=== PATIENT | male | born 1945 | race Caucasian/White ===

== ENCOUNTER → 2016-06-02 09:58 | Outpatient (CLI) | payer MEDICARE, BC, OTHER ==
[2013-11-27 08:06] VITALS: BMI 26.2
[~2016-06-02 09:58] MED LIST: ASPIRIN 81 MG E81 MG PO; DIOVAN80 MG PO; FLEXERIL10 MG PO; HEMOCYTE PLUS1 CAP; HEMOCYTE PLUS1 CAP PO; LIPITOR80 MG PO; LISINOPRIL5 MG PO; LOPRESSOR25 MG PO; MOBIC7.5 MG PO; NORCO 5/325 TAB1 TA1 PO; PRAVACHOL10 MG PO; TYLENOL 325 MG325 MG PO; ZYRTEC10 MG PO
[2016-06-02 10:45] LABS: HEMOGLOBIN A1C 5.5 % (4.8-6.0)
[2016-06-02 10:57] LABS: T4 THYROXINE 9.1 ug/dL (4.7-13.3); THYROID STIMULATING HORMONE 0.94 uIU/mL (0.36-3.74)
[2016-06-02 12:17] LABS: ERYTHROCYTE SEDIMENTATION RATE 9 mm/hr (0-20)
[2016-06-03 11:18] LABS: ANA REFLEX - DIRECT Negative (Negative)
== END | disposition home or self-care (01) ==
LOC: D.LAB 09:58
PROVIDERS: Psychiatry & Neurology Neurology
DX: G60.3 Idiopathic progressive neuropathy (principal); G31.84 Mild cognitive impairment of uncertain or unknown etiology

== ENCOUNTER → 2016-12-29 09:50 | Outpatient (CLI) | payer OTHER ==
[2013-11-27 08:06] VITALS: BMI 26.2
--- NOTE | 2016-12-31 12:22 | EC ---
PATIENT:KARINA HODGES DATE OF SERVICE: 12/29/16 SEX: M MEDICAL RECORD: [id number] DATE OF : 43 LOCATION:[facility] AGE OF PATIENT: 71 ADMISSION DATE: 12/29/16 REFERRING PHYSICIAN: INTERPRETING PHYSICIAN: JOE DIAMOND MD ECHOCARDIOGRAM REPORT ECHO CHARGES 4 ECHO COMPLETE CLINICAL DIAGNOSIS: ISCHEMIC HEART DISEASE HX CAD ECHOCARDIOGRAPHIC MEASUREMENTS (adult normal given) AC root (d.<3.7cm) 3.9 cm LV Septum d (<1.2 cm> 0.90 cm Valve Excursion 1.5 cm LV Septum (systole) 1.4 cm Left Atria (s.<4.0cm> 3.6 cm LVPW d(<1.2cm) 1.0 cm RV (d.<2.3cm) 2.9 cm LVPW (sytole) 1.4 cm LV diastole(<5.6CM) 5.4 cm MV E-F(>70mm/sec) cm LV systole 3.6 cm LVOT Diameter 1.6 cm MV exc.(>10mm) 1.4 cm Est.ejection fraction (50-75%) % Pericardial Effusion N DOPPLER: LVIT cm/sec A 101 cm/sec E 73.0 cm/sec LA cm/sec RVSP 36 mmHg LVOT 89 cm/sec AOP1/2T m/s Asc. Ao 158 cm/sec RVOT 71 cm/sec RA cm/sec PA 111 cm/sec AV Gradient Peak 9.95 mmHg AV Mean 4.83 mmHg AV Area 1.1 cm MV Gradient Peak 3.23 mmHg MV Mean 1.46 mmHg MV Area cm COMMENTS: Pill Coater: Jimbo AUSTIN Chief Dispatcher: 1 Dr. Diamond TAPE# PACS DATE OF SERVICE: 12/29/2016 Echocardiogram FINDINGS: 1. Left ventricular chamber size is within normal limits. Left ventricular systolic function is normal. Overall ejection fraction estimated at 55%. 2. Left atrium, right atrium, and right ventricular chamber sizes are within normal limits. 3. Valvular structures: Mitral valve demonstrates posterior leaflet prolapse. ECHOCARDIOGRAM REPORT [id number] KARINA HODGES The remaining valvular structures have normal structure and motion. 4. Doppler interrogation reveals moderate mitral regurgitation, mild tricuspid regurgitation, no other valvular insufficiency or stenosis. Pulmonary systolic pressure is still preserved at 36 mmHg. 5. No evidence of pericardial effusion or left ventricular thrombus. TRANSINT:[id number] Voice Confirmation ID: [id number] DOCUMENT ID: [id number] JOE DIAMOND MD at 1222 CC: [id number] DICTATION DATE: 12/29/16 1537 BUILDING SUPPLIES SALESPERSON RETAIL: 12/29/162035 DEP CLI 12/29/16 [place] [id number]
== END | disposition home or self-care (01) ==
LOC: D.ECHO 09:50
DX: I25.9 Chronic ischemic heart disease, unspecified (principal)

== ENCOUNTER 2019-06-11 11:39 | Inpatient (IN) | payer MEDICARE, BC ==
[~2019-06-11] VITALS: Ht 172.7 cm; Wt 61.7 kg
--- NOTE | ~2019-06-11 | HEMODYNAMI ---
PATIENT:KARINA HODGES MEDICAL RECORD: [id number] : 43 LOCATION:[facility] [address] [id number] ADMISSION DATE: 06/12/19 Generatedon:06/16/201914:25 Patient name: KARINA HODGES Patient #: [id number] SSN: [id number] : 1945 Date of study: 06/16/2019 Page: Of Hemodynamic Procedure Report Patient Data Patient Demographics First Name: KARINA Gender: Male Last Name: TRACIE : 1945 [facility] Initial: [place] Age: 74 year(s) Patient #: [id number] Race: Unknown SSN: [id number] Additional ID: [id number] Contact details [address]: [address] [place] [address] State: [place] City: [place] Zip code: [address] Past Medical History Allergies Allergen Reaction Date Comments Reported Other allergy 06/16/2019 amoxicillin Admission Admission Data Admission Date: 06/12/2019 Admission Time: 12:43 Arrival Date: 06/16/2019 Arrival Time: 0:00 Admit Source: Other Insurance Payor: Medicare, Room #: D.2316 Private health insurance [facility] #: [id number] Height (in.): 69 BSA: 1.81 (m2) Height (cm.): 175.26 BMI: 21.56 (kg/m2) Weight (lbs.): 146 Weight (kg.): 66.22 Lab Results Lab Result Date: 06/16/2019 Lab Result Time: 0:00 Biochemistry Name Units Result Min Max BUN mg/dl 35 --(----)-* 7 18 Creatinine mg/dl 1.2 --(---*)-- 0.6 1.3 eGFR ml/min 57 *-(----)-- 90 120 NONAFRICAN CBC Name Units Result Min Max Hemoglobin g/dl 13.5 --(*---)-- 13.5 17.5 Procedure Procedure Types Cath Procedure Diagnostic Procedure [facility] w/Coronaries w/Grafts Procedure Description Procedure Date Procedure Date: 06/16/2019 Procedure Start Time: 14:06 Procedure End Time: 14:23 Procedure Staff Name Function Baudilio Call MD Performing Physician Temitope Stein RN Principal Biostatistician Radha Jean-Baptiste RT Monitor Temitope Stein RN Nurse Dyan Thomas RT Scrub Procedure Data Cath Procedure Fluoroscopy Diagnostic fluoroscopy Total fluoroscopy Time: 4.1 time: 4.1 min min Diagnostic fluoroscopy Total fluoroscopy dose: 314 dose: 314 mGy mGy Entry Location Entry Primary Successful Side Size Upsize Upsize Entry Closure Succes sful Closure Location (Fr) 1 (Fr) 2 (Fr) Remarks Device Remarks Femoral Right 5 Fr Exoseal artery Estimated blood loss: 10 ml Diagnostic catheters Device Type Used For End Catheter Placement MULTIPACK JL 4.0 5Fr Procedure catheter DIAGNOSTIC AR MOD 5Fr Right Coronary Catheter ([id number]) Angiography DIAGNOSTIC IMT 5Fr Procedure Catheter ([id number]) MULTIPACK Pigtail 5 Fr Procedure catheter Procedure Complications No complications Procedure Medications Medication Administration Route Dosage Oxygen etCO2 Nasal cannula 2 l/min Heparin Flush Bag added to field 2 bags (1000units/500ml NS) Lidocaine 2% added to field 20 0.9% NaCl I.V. 100 ml/hr Fentanyl I.V. 25 mcg Versed I.V. 0.5 mg Fentanyl I.V. 50 mcg Versed I.V. 1 mg Fentanyl I.V. 25 mcg Versed I.V. 0.5 mg Versed I.V. 0.5 mg Hemodynamics Rest BSA: 1.81 (m2) O2 Consumption: Estimated: 219.95 (ml/min) O2 Consumption indexed : Estimated:121.52 (ml/min/m) Heart Rate: 87 (bpm) Pressure Samples Time Site Value (mmHg) Purpose Heart Use Rate(bpm) 14:17 LV 109/-4,8 Snapshot 87 14:18 AO 104/60(78) Pullback 83 14:18 LV 105/-1,9 Pullback 83 Gradients Valve Time Site 1 Site 2 Mean SEP/DFP Peak To Heart Use (mmHg) (sec/min) Peak Rate (mmHg) (bpm) Aortic 14:18 LV AO 6 18 1 83 105/-1,9 104/60(78) Calculations Valve P-P Mean Valve Index Valve Source Name Gradient Area Flow (cm2) Aortic 1 6 1 6 Snapshots Pre Cath Intra NCS Post Cath Medications Time Medication Route Dose Verified Delivered Reason Notes Eff ectiveness by by 13:56:33 Oxygen etCO2 2 Temitope Temitope for low 02 Nasal l/min Emil Stein sats cannula RN RN 13:56:41 Heparin Flush added 2 Temitope Temitope used for Bag to bags Emil Stein, procedure (1000units/500ml field RN RN NS) 13:56:51 Lidocaine 2% added 20ml Temitope Baudilio for local to vial Jakub Stein MD anesthetic field RN 13:57:06 0.9% NaCl I.V. 100 Temitope Temitope Per ml/hr Emil Stein, physician RN RN 14:01:49 Fentanyl I.V. 25 Temitope Temitope for mcg Stien, Stein, sedation RN RN 14:01:57 Versed I.V. 0.5 Temitope Temitope for mg Stein, Stein, sedation RN RN 14:07:06 Fentanyl I.V. 50 Temitope Temitope for mcg Stein, Stein, sedation RN RN 14:07:10 Versed I.V. 1 mg Temitope Temitope for Stein, Stein, sedation RN RN 14:09:35 Fentanyl I.V. 25 Temitope Temitope for mcg Stein, Stein, sedation RN RN 14:09:40 Versed I.V. 0.5 Temitope Temitope for mg Stein, Stein, sedation RN RN 14:14:16 Versed I.V. 0.5 Temitope Temitope for mg Stein, Stein, sedation RN manager family Log Time Note 13:40:00 Admit Source: Other 13:40:02 Arrival Date: 06/16/2019 12:00:00 AM 13:40:25 Insurance Payor : Private health insurance, Medicare 13:40:45 Patient Height : 69 inches 13:40:56 Patient Weight : 146 lbs 13:42:06 Lab Result : eGFR NONAFRICAN 57 ml/min 13:42:06 Lab Result : Creatinine 1.2 mg/dl 13:42:06 Lab Result : BUN 35 mg/dl 13:42:06 Lab Result : Hemoglobin 13.5 g/dl 13:43:05 Procedure Status Urgent Heart Cath (IP). 13:43:10 Temitope Stein RN sent for patient. Start room use. 13:43:20 Time tracking: Regular hours (M-F 7:00 - 5:00) 13:43:26 Plan of Care:Hemodynamics will remain stable., Cardiac rhythm will remain stable., Comfort level will be maintained., Respiratory function will remain adequate., Patient/ family verbilizes understanding of procedure., Procedure tolerated without complication., Recovers from procedure without complications.. 13:43:33 Patient received from ICU to CCL 1 Alert and oriented. Tansferred to table in Supine position. 13:43:35 Warm blankets applied, and shirley hugger turned on for patient comfort. 13:43:36 Warm blankets applied, and shirley hugger turned on for patient comfort. 13:43:47 H&P Date Dictated: 06/12/2019 Within 30 days and on chart., H&P Addendum completed by physician on day of procedure. (MUST COMPLETE FOR ALL OUTPATIENTS). 13:43:49 Pre-procedure instructions explained to patient. 13:43:51 Family in waiting room. 13:43:54 Patient NPO since Midnight. 13:44:13 Patient allergic to Other allergyamoxicillin 13:44:16 Is the patient allergic to Iodine/contrast media? No. 13:44:17 Was the patient premedicated? Yes 13:44:29 2) 60-89 Mildly reduced kidney function, and other findings (as for stage 1) point to kidney disease. 13:44:52 Maximum allowable contrast dose (3.7 X eGFR X 0.75)174 ml. 13:56:33 Oxygen 2 l/min etCO2 Nasal cannula was administered by Temitope Stein RN; for low 02 sats; Verbal order read back and verified. 13:56:41 Heparin Flush Bag (1000units/500ml NS) 2 bags added to field was administered by Temitope Stein RN; used for procedure; Verbal order read back and verified. 13:56:51 Lidocaine 2% 20ml vial added to field was administered by Baudilio Call MD; for local anesthetic; Verbal order read back and verified. 13:56:59 Is patient on blood thinner?No 13:57:02 Patient diabetic? No. 13:57:06 0.9% NaCl 100 ml/hr I.V. was administered by Temitope Stein RN; Per physician; Verbal order read back and verified. 13:57:06 Snore? Yes 13:57:10 Sleep apnea? No 13:57:22 Patient pain scale 0/10 ?. 13:57:36 IV patent on arrival in right forearm with 0.9% NaCl at [facility]. 13:57:42 Lab results completed and on chart. 13:57:47 Stress Test: no; N/A ? 13:57:50 Risk of Mortality: .2 13:57:54 Risk of blood transfusion: .4 13:57:58 Risk of CHAITANYA: 4.4 13:58:17 Right groin area was prepped with chlora-prep and draped in sterile fashion 13:58:37 Alarms reviewed by R. N. 13:58:38 Sharps counted by scrub and verified by R.N. 13:58:39 Physician paged 14:01:33 Physician arrived 14:01:34 --------ALL STOP TIME OUT------ 14:01:35 Final Timeout: patient, procedure, and site verified with staff and physician. All members of the team are in agreement. 14:01:39 Left groin site verified by team. 14:01:43 Fire Safety Assessment: A--An alcohol-based skin anteseptic being used preoperatively., C--Open oxygen or nitrous oxide is being used., D--An ESU, laser, or fiber-optic light is being used. 14:01:47 Physical assessment completed. ASA score P 3 - A patient with severe systemic disease as per Baudilio Call MD. 14:01:49 Fentanyl 25 mcg I.V. was administered by Temitope Stein RN; for sedation; Verbal order read back and verified. 14:01:52 Sedation plan: IV Moderate Sedation Medication:Versed, Fentanyl 14::57 Versed 0.5 mg I.V. was administered by Temitope Stein RN; for sedation; Verbal order read back and verified. 14:05:26 Procedure started. 14:05:26 Full Disclosure recording started 14:05:35 Use device set Femoral Dx 14:05:37 ACIST Syringe (47071) opened to sterile field. 14:05:37 Bag Decanter (2002S) opened to sterile field. 14:05:37 Medline Cath Pack ([id number]) opened to sterile field. 14:05:39 ACIST Hand Control (64193) opened to sterile field. 14:05:39 ACIST Manifold (79126) opened to sterile field. 14:05:39 DIAGNOSTIC Multipack 5Fr catheter set (MR5131) opened to sterile field. 14:05:40 Tegaderm 4 x 4 (1626W) opened to sterile field. 14:05:42 SHEATH 5FR Stanton ([id number]) opened to sterile field. 14:05:43 EMERALD Guide Wire (589-907) opened to sterile field. 14:06:17 Local anesthetic to right femoral artery with Lidocaine 2% by Baudilio Call MD.INITIAL ACCESS ONLY 14:06:26 A 5 Fr sheath was inserted into the Right Femoral artery 14:06:58 A MULTIPACK JL 4.0 5Fr catheter was advanced over the wire and used for Procedure. 14:07:01 LCA angiography performed. 14:07:06 Fentanyl 50 mcg I.V. was administered by Temitpoe Stein RN; for sedation; Verbal order read back and verified. 14:07:10 Versed 1 mg I.V. was administered by Temitope Stein RN; for sedation; Verbal order read back and verified. 14:09:35 Fentanyl 25 mcg I.V. was administered by Temitope Stein RN; for sedation; Verbal order read back and verified. 14:09:40 Versed 0.5 mg I.V. was administered by Temitope Stein RN; for sedation; Verbal order read back and verified. 14:10:53 A DIAGNOSTIC AR MOD 5Fr Catheter ([id number]) was advanced over the wire and used for Right Coronary Angiography. 14:11:37 SVG angiography performed. 14:11:42 SVG to Circ angiography performed. 14:12:07 A DIAGNOSTIC IMT 5Fr Catheter ([id number]) was advanced over the wire and used for Procedure. 14:12:45 ANGULO to LAD angiography performed. 14:14:16 Versed 0.5 mg I.V. was administered by Temitope Stein RN; for sedation; Verbal order read back and verified. 14:15:26 Catheter removed. 14:15:36 A MULTIPACK Pigtail 5 Fr catheter was advanced over the wire and used for Procedure. 14:15:38 LV angiography performed. 14:15:41 LV gram done using FULTNO 14:17:32 EXOSEAL 5Fr (EX500) opened to sterile field. 14:17:56 EF : 50 % 14:18:12 Catheter removed. 14:18:22 Sheath removed intact; hemostasis achieved with Exoseal to the Right Femoral artery. 14:18:26 Procedure ended.(Physican Out) 14:18:50 Fluoroscopy time 04.10 minutes. 14:18:54 Fluoroscopy dose: 314 mGy 14:18:54 Flurop Dose total: 314 14:19:03 Dose Area Product 48030 mGy/cm. 14:19:21 Maximum allowable dose exceeded? No. 14:19:22 Sharps counted by scrub and verified by R.N. 14:19:28 Insertion/operative site no bleeding no hematoma. 14:19:33 Post-op/insertion site Right Femoral artery dressed using a 4 x 4 and Tegaderm. 14:19:35 Post Procedure Pulses reassessed and unchanged 14:19:44 Post procedure rhythm: unchanged. 14:19:48 Estimated blood loss: 10 ml 14:19:53 Post procedure instruction explained to patient.Patient verbalizes understanding. 14:19:55 Patient needs reinforcement of post procedure teaching. 14:20:23 Procedure type changed to Cath procedure, Diagnostic procedure, LHC, LHC w/Coronaries w/Grafts 14:20:26 Procedure and supply charges have been captured, reviewed, submitted and are correct. 14:20:44 Procedure and supply charges have been captured, reviewed, submitted and are correct. 14:22:09 Procedure and supply charges have been captured, reviewed, submitted and are correct. 14:22:41 Procedure Complication : No complications 14:22:50 LHC Findings: mild to moderate CAD (<70%) 14:22:53 See physician's report for complete and final results. 14:22:55 Report given to Pre/Post Procedure Room. 14:23:06 Patient transfered to ICU with Stretcher. 14:23:08 Procedure ended. 14:23:08 Full Disclosure recording stopped 14:23:11 End room use (Document Last) Device Usage Item Name Manufacture Quantity Catalog Number Hospital Part Current Minim al Lot# / Charge Number Stock Stock Serial# Code ACIST [facility] 1 62222 023096 399639 844636 20 Syringe Medical (78359) Systems Inc Bag Microtek 1 2001S 964738 24527 439659 5 Decanter Medical Inc. (2001S) Medline Medline 1 [id number] 782984 46245 322635 5 Cath Pack ([id number]) ACIST Hand Acist 1 67301 270430 968971 417665 5 Control Medical (76699) Systems Inc ACIST Acist 1 13762 332774 826804 967049 5 Manifold Medical (45439) Systems Inc DIAGNOSTIC Cardinal 1 [id number] 714386 78240 192582 30 Multipack EndoEvolution 5Fr catheter set (XQ1326) Tegaderm 4 3M 1 1626W 465865 154040 765408 5 x 4 (1626W) SHEATH 5FR Terumo 1 [id number] 194910 604218 536115 5 Stanton (YAF460) EMERALD Cardinal 1 502-455 696693 691213 104422 5 Guide Wire Health (502-455) MULTIPACK Cardinal 1 138006 5 JL 4.0 5Fr Health catheter DIAGNOSTIC Cardinal 1 [id number] 811442 191150 331950 15 AR MOD 5Fr Health Catheter (624665Z) DIAGNOSTIC [place] 1 [id number] 042819 499986 32481 5 IMT 5Fr Scientific Catheter ([id number]) MULTIPACK Cardinal 1 276847 5 Pigtail 5 Health Fr catheter EXOSEAL 5Fr Cardinal 1 EX500 146042 342996 517447 10 (EX500) Health Signature Audit [place] Stage Time Signature Unsigned Intra-Procedure 06/16/2019 Radha Jean-Baptiste 2:20:44 PM RT(R) Intra-Procedure 06/16/2019 Temitope Stein, 2:22:09 PM RN Intra-Procedure 06/16/2019 Baudilio Call MD 2:25:14 PM [place] [id number] [facility] [place] [address]
--- NOTE | 2019-06-11 12:30 | NUR ---
PATIENT STATES HE STARTED HAVING SLURRED SPEECH LAST NIGHT APPROX 2330, THIS MORNING HIS FOUND HIM ON THE BATHROOM FLOOR. PATIENT STATES HE HAS NECK AND BACK PAIN THAT IS CHRONIC, DENIES ANY NEW PAIN. IS ABLE TO ANSWER ALL QUESTION APPROPRIATELY, ALTHOUGH HIS SPEECH IS NOT CLEAR. RUBEN OVERHEAD LINE WORKER FIRM AND EQUAL SMILE IS SYMMETRICAL, VERY PLEASANT.
[2019-06-11 12:44] LABS: BASOPHILS 0.2 % (0-2); EOSINOPHILS 0 % (0-7); HEMATOCRIT 39.6 % (42.0-54.0); HEMOGLOBIN 13.4 g/dL (13.5-17.5); IMMATURE GRANULOCYTES 0.2 % (0-5); LYMPHOCYTES 4.5 % (15-50); MCH 33.1 pg (26.0-34.0); MCHC 33.8 g/dL (31.0-37.0); MCV 97.8 fL (80.0-100.0); MEAN PLATELET VOLUME 9.5 fL (7.4-10.4); MONOCYTES 7.3 % (2-11); NEUTROPHILS 87.8 % (40-80); RBC 4.05 10x6/uL (4.20-6.10); RDW 13.4 % (11.5-14.5); WBC 10.6 10x3/uL (4.8-10.8)
[2019-06-11 12:48] LABS: PLATELET COUNT 144 10x3/uL (130-400)
[2019-06-11 12:59] LABS: APTT 30.1 SECONDS (22.8-39.4); INR 1.12 (0.85-1.17); PROTIME 14.4 SECONDS (11.6-15.0)
[2019-06-11 13:03] LABS: ANION GAP 13.3 mmol/L (8-16); CALCIUM 9.6 mg/dL (8.5-10.1); CARBON DIOXIDE 23.8 mmol/L (21.0-32.0); CREATININE - SERUM 1.1 mg/dL (0.6-1.3); POTASSIUM - SERUM 4.1 mmol/L (3.5-5.1)
[2019-06-11 13:09] LABS: ALBUMIN 3.1 g/dL (3.4-5.0); BILIRUBIN - TOTAL 1.64 mg/dL (0.2-1.3); PROTEIN - SERUM 6.5 g/dL (6.4-8.2)
[2019-06-11 13:41] VITALS: BP 92/57
[2019-06-11 14:06] VITALS: BP 111/71
--- NOTE | 2019-06-11 14:12 | NUR ---
TECH TO BEDSIDE TO DO CAROID DOPPLER, FAMILY AT BEDSIDE.
--- NOTE | 2019-06-11 14:20 | NUR ---
ATTEMPTED TO CALL REPORT, STATES THE NURSE IS BUSY AND SHE WILL CALL ME BACK.
--- NOTE | 2019-06-11 14:37 | NUR ---
PATIENT TO GO TO MRI VIA W/C PER TECH.
--- NOTE | 2019-06-11 15:05 | NUR ---
PATIENT TAKEN TO MRI VIA W/C, TECH WILL TAKE PATIENT TO HIS ROOM AFTER THE MRI.
--- NOTE | 2019-06-11 16:01 | NUR ---
PT RECIEVED FROM ER. NO SIGNS OF DISTRESS. IV TO LEFT HAND PATENT NO REDNESS OR TENDERNESS. ON 4L NC. DENIES ANY FURTHER NEED AT THIS TIME. CALL LIGHT IN REACH. BED LOW POSITION. NO FAMILY AT BEDSIDE
[2019-06-11 17:40] VITALS: BP 108/59
[2019-06-11 18:20] VITALS: BP 108/69; BMI 21.3
--- NOTE | 2019-06-11 18:28 | NUR ---
I have reviewed this patient and I concur with the Shift Assessment completed by the Licensed Practical Nurse today this shift.
[2019-06-11 20:00] VITALS: BP 117/69
[2019-06-12] VITALS (10 sets, daily range): BP systolic 83–128; BP diastolic 62–100; BMI 21.2
--- NOTE | 2019-06-12 01:40 | NUR ---
PT WILL NOT KEEP FIELD MARKETING LEAD ON. RETURNED TO ACID MAKER AND COMPLETED ORDER.
--- NOTE | 2019-06-12 02:13 | NUR ---
CALLED SHIP UNLOADER TO ADVISE THAT PT HAD A FALL...FOUND ON KNEES...NO INJURIES. CALLED ROSANA, PT'S AND TOLD HER THAT HE FELL...WILL NOT STAY IN BED...AND KEEPS TRYING TO ESCAPE FLOOR. SHE CANNOT COME HERE TO SIT WITH PT AND SAID " TIE HIM DOWN IF YOU HAVE TO".
--- NOTE | 2019-06-12 02:32 | NUR ---
GAVE ATIVAN 0.5 MG IVP PER PRN ORDER FOR AGGITATION. WILL MONITOR FOR EFFECTIVENESS.
[2019-06-12 04:39] LABS: BASOPHILS 0.4 % (0-2); EOSINOPHILS 0 % (0-7); HEMATOCRIT 38.8 % (42.0-54.0); HEMOGLOBIN 12.9 g/dL (13.5-17.5); IMMATURE GRANULOCYTES 0.2 % (0-5); LYMPHOCYTES 9.1 % (15-50); MCH 32.8 pg (26.0-34.0); MCHC 33.2 g/dL (31.0-37.0); MCV 98.7 fL (80.0-100.0); MEAN PLATELET VOLUME 10.1 fL (7.4-10.4); MONOCYTES 14.3 % (2-11); PLATELET COUNT 172 10x3/uL (130-400); RBC 3.93 10x6/uL (4.20-6.10); RDW 13.4 % (11.5-14.5)
[2019-06-12 04:43] LABS: WBC 5.6 10x3/uL (4.8-10.8)
[2019-06-12 05:13] LABS: ANION GAP 13.2 mmol/L (8-16); CALCIUM 9.7 mg/dL (8.5-10.1); CARBON DIOXIDE 26.4 mmol/L (21.0-32.0); CREATININE - SERUM 1.1 mg/dL (0.6-1.3); PHOSPHOROUS 3.2 mg/dL (2.5-4.9); POTASSIUM - SERUM 4.6 mmol/L (3.5-5.1)
--- NOTE | 2019-06-12 07:10 | NUR ---
PT RESTING IN BED. SWALLOW BREATHING. WITH INCREASE SECERTIONS. SUCTION SET UP PER RESP. IV TO LEFT FORARM PATENT NO REDNESS OR TENDERNESS. ON 2L NC. AWAITING TELEMETRY AT THIS TIME. MENTAL STATUS DECREASING. ALL FALL PRECAUTIONS IN PLACE. OBSERVATED TRYING TO GET OUT OF BED. REDIRECTED BACK TO BED. DENIES ANY FURTHER NEED AT THIS TIME. CALL LIGHT IN REACH. BED LOW POSITION. NO FAMILY AT BEDSIDE AT THIS TIME.
[2019-06-12 10:54] LABS: % SATURATION 10 % (15-55); IRON 21 ug/dl (35-150); TOTAL IRON BIND CAPACITY 201 ug/dl (260-445); UNSAT IRON BIND CAPACITY 180 ug/dl (150-375)
[2019-06-12 10:55] LABS: UDS - AMPHET NEGATIVE QUAL (NEGATIVE); UDS - BARB NEGATIVE QUAL (NEGATIVE); UDS - BENZO NEGATIVE QUAL (NEGATIVE); UDS - COCAINE NEGATIVE QUAL (NEGATIVE); UDS - OPIATE POSITIVE QUAL (NEGATIVE); UDS - PCP NEGATIVE QUAL (NEGATIVE); UDS - THC NEGATIVE QUAL (NEGATIVE)
[2019-06-12 10:58] LABS: BILIRUBIN NEGATIVE (NEGATIVE); GLUCOSE NEGATIVE (NEGATIVE); KETONE MODERATE mg/dL (NEGATIVE); NITRITE NEGATIVE (NEGATIVE); SPECIFIC GRAVITY 1.025 (1.005-1.020)
[2019-06-12 10:59] LABS: BACTERIA FEW /hpf (NEGATIVE); EPITHELIAL CELLS 0-5 /hpf (0-5); WHITE CELLS - URINE 0-5 /hpf (NEGATIVE)
[2019-06-12 11:37] LABS: CKMB 4.4 U/L (0.0-3.6); CREATINE KINASE 459 UL (21-232); FERRITIN 385 ng/mL (3-244); LDH 208 U/L (85-227); TROPONIN-I < 0.017 ng/mL (0.000-0.060)
--- NOTE | 2019-06-12 12:59 | NUR ---
CALLED INTO PATIENTS ROOM PER ORDAINED MINISTER. PATIENT IN RESPIRATORY DISTRESS. CALLED RESPIRATORY. CALLED JOSE RAMON HUSAIN INTO ROOM. PATIENT O2 SAT ON 78% RA. PUT PATIENT PUT ON 5.5L O2 SATURATION @ 90%. CURT CAME INTO PATIENT'S ROOM, SENDING PATIENT TO ICU PER DR. ELIAS.
--- NOTE | 2019-06-12 16:00 | NUR ---
RECIEVED PT FROM ELSI WALLACE. PT ON BIPAP AT 40 PERCENT. VSS. VOICES NO CO AT TIME. SR UP X 2. BED ALARM ON.
--- NOTE | 2019-06-12 16:20 | NUR ---
LOUIE IN CT NOTIFIED PT READY FOR CTA.
--- NOTE | 2019-06-12 17:45 | NUR ---
DR ELIAS NOTIFIED PT CAN NOT COME OFF BIPAP FOR CTA DUE TO ABGS. DO IN AM.
--- NOTE | 2019-06-12 19:20 | NUR ---
PT RESTING QUIETLY, BIPAP IN USE, AROUSES EASILY, CONFUSED, LUNGS VERY DIMINISHED, LEFT PIV INTACT AND SL, ROJO PATENT TO BSD, NO DISTRESS NOTED, VITALS STABLE
--- NOTE | 2019-06-12 21:30 | NUR ---
PT REMAINS CONFUSED, REORIENTED FREQUENTLY, WILL CONT TO MONITOR
--- NOTE | 2019-06-12 23:30 | NUR ---
PT AWAKE, REMAINS CONFUSED, ATTEMPTS TO GET UP AT TIMES, FOLLOWS COMMANDS, VITALS STABLE
[2019-06-13] VITALS (23 sets, daily range): BP systolic 94–133; BP diastolic 42–97
--- NOTE | 2019-06-13 01:30 | NUR ---
PT REMAINS CONFUSED, PULLS AT BIPAP MASK AT TIMES, INSTRUCTED PT TO LEAVE MASK IN PLACE
[2019-06-13 04:46] LABS: CALC OSMOLALITY 296 mosm/kg (275-300); CALCIUM 10.2 mg/dL (8.5-10.1); CARBON DIOXIDE 28.8 mmol/L (21.0-32.0); CHLORIDE - SERUM 106 mmol/L (98-107); GLUCOSE 152 mg/dL (74-106); PHOSPHOROUS 2.5 mg/dL (2.5-4.9); POTASSIUM - SERUM 4.7 mmol/L (3.5-5.1); SODIUM 142 mmol/L (136-145); eGFR NON AFRICAN AMERICAN 77 mL/min (90-120)
[2019-06-13 04:49] LABS: UREA NITROGEN 43 mg/dL (7-18)
[2019-06-13 04:58] LABS: MAGNESIUM - SERUM 2.3 mg/dL (1.8-2.4)
[2019-06-13 05:03] LABS: BASOPHILS 0 % (0-2); EOSINOPHILS 0 % (0-7); HEMATOCRIT 37.9 % (42.0-54.0); HEMOGLOBIN 12.5 g/dL (13.5-17.5); IMMATURE GRANULOCYTES 0.3 % (0-5); LYMPHOCYTES 12.8 % (15-50); MEAN PLATELET VOLUME 10.6 fL (7.4-10.4); NEUTROPHILS 77.9 % (40-80); PLATELET COUNT 175 10x3/uL (130-400); RBC 3.79 10x6/uL (4.20-6.10); RDW 13.5 % (11.5-14.5)
[2019-06-13 05:04] LABS: WBC 2.9 10x3/uL (4.8-10.8)
--- NOTE | 2019-06-13 05:46 | NUR ---
PT AWAKE, TRYING TO LEAVE, STATES HE HAS TO GO HOME TO TAKE CARE OF HIS FAMILY, PT APPEARS ORIENTED, KNOWS DATE AND WHERE HE IS, CONVINCED PT TO STAY UNTIL HE SPEAKS WITH THE DR AND TESTS ARE COMPLETED, PT IN AGREEMENT
--- NOTE | 2019-06-13 07:17 | NUR ---
PATIENT RESTING QUIETLY WITH EYES CLOSED. BIPAP IS ON. BED IS IN LOW POSITION AND CALL LIGHT IS IN REACH. PATIENT DENIES PAIN AT THIS TIME. IV TO THE LEFT FOREARM IS SALINE LOCKED. EDUCATED PATIENT ON THE CALL LIGHT. PATIENT DENIES NEEDS AT THIS TIME.
--- NOTE | 2019-06-13 08:41 | NUR ---
PLACED PATIENT BACK ON BIPAP AFTER BREAKFAST. TOLERATING WELL.
--- NOTE | 2019-06-13 08:53 | NUR ---
PATIENT DENIES ANY NEEDS AT THIS TIME. PATIENT PLACED BACK ON BIPAP BECAUSE HE REMOVED IT AGAIN. BED IS IN LOW POSITION AND CALL LIGHT IS IN REACH. MEDICATIONS WILL BE GIVEN IN 30MINUTES AFTER BIPAP IS WORN FOR A WHILE
--- NOTE | 2019-06-13 11:39 | NUR ---
PLACED O2 ON PATIENT AT 4LPM. O2 SAT 96%. EDUCATED PATIENT ON IMPORTANCE OF KEEPING O2 ON FACE. BED IS IN LOW POSITION AND CALL LIGHT IS IN REACH. PATIENT DENIES ANY PAIN AND OR NEEDS AT THIS TIME
--- NOTE | 2019-06-13 13:25 | NUR ---
PATIENT IS WATCHING TV. O2 IS AT 4LPM AND 93%. BED IS IN LOW POSITION AND CALL LIGHT IS IN REACH.
--- NOTE | 2019-06-13 14:37 | NUR ---
PATEINT RETURNED FROM CHEST CT. REPLACED O2 SENSOR. O2 NOTED AT 94% AT 4LPM. BED IS IN LOW POSITION AND CALLLIGHT IS IN REACH
--- NOTE | 2019-06-13 16:52 | NUR ---
PLACED PATIENT BACK ON BIPAP. PATIENT CONFUSED TRYING TO STAND UP OUT OF BED. STATING THAT HE HAS TO URINATE PULLING ON ROJO. EDUCATED PATIENT ON THE IMPORTANCE OF KEEPING BIPAP ON AND STAYING IN THE BED. BED IS IN LOW POSITION AND CALL LIGHT IS IN REACH. PATIENT DENIES ANY NEEDS AT THIS TIME
--- NOTE | 2019-06-13 19:15 | NUR ---
RECEIVED PATIENT LYING IN BED WITH EYES OPENED. ORIENTED TO SELF AND HOSPITAL. NURSING ASSESSMENT COMPLETED. SEE NURSING FLOW SHEET. CONFUSED REGARDING SURROUNDINGS IE TRIES TO USE THE CALL LIGHT FOR A TELEPHONE. DOES NOT KNOW WHAT TO DO WITH THE TELEPHONE. NOT PROCESSING INFORMATION KEEPS TALKING HE NEEDS OUT SO HE CAN TALK TO HIS FAMILY. THEN TALKS ABOUT GOING TO THE OFFICE TO TALK WITH THEM. PATIENT PULLED SALINE LOCK OUT WITH CATHETER INTACT. RECEIVED PHONE CALL AND WILL HANG THE PHONE UP. ATTEMPTS TO GET OUT OF BED UNASSISTED.
--- NOTE | 2019-06-13 21:00 | NUR ---
SALINE LOCK RESITED TO LEFT FOREARM WITH 22 GAUGE CATHETER X 4 ATTEMPTS. MEDS ADMINISTERED PER ORDERS WITHOUT DIFFICULTY.
--- NOTE | 2019-06-13 21:53 | NUR ---
PATIENT CONFUSED AND TRYING TO GET OUT OF BED. HAD PULLED STAT LOCK TO ROJO OFF AND WAS TRYING TO PULL ROJO OUT. ALSO HAD PULLED O2 SAT MONITOR OFF. PULLING BP CUFF OFF. TRYING TO USE CALL LIGHT FOR TELEPHONE. TAKES TELEPHONE AND TURNS IT UPSIDE DOWN. RELATES HE DOESN'T CARE ANYMORE. STAT LOCK REPLACED AND O2 SAT MONITOR REPLACED. NOT PROCESSING VERBAL INSTRUCTIONS.
--- NOTE | 2019-06-13 22:10 | NUR ---
EYES CLOSED. HAD PULLED O2 OFF. PT AROUSED WHEN REPLACING O2. NO DISTRESS NOTED. BED IN LOW POSITON, CL IN REACH AND BED ALARM AUDIBLE.
--- NOTE | 2019-06-13 23:19 | NUR ---
ASSESSMENT COMPLETED. SEE NURSING FLOWSHEET. CONFUSED AND PULLED O2 MONITOR OFF. UNABLE TO FOLLOW VERBAL INSTRUCTIONS DUE TO IMPAIRED ABILITY TO PROCESS INFORMATION. CL WITHIN REACH. BED IN LOW POSITION AND BED ALARM AUDIBLE.
[2019-06-14] VITALS (23 sets, daily range): BP systolic 98–146; BP diastolic 63–94
--- NOTE | 2019-06-14 00:23 | NUR ---
PATIENT CONFUSED AND THINKS HE IS AT HOME AND IS TRYING TO GET OUT OF THE BED TELLING THE NURSE TO GET OUT AND LEAVE HIM ALONE HE IS GOING TO DO WHAT HE WANTS. BIPAP 40% PLACED ON PATIENT.
--- NOTE | 2019-06-14 02:10 | NUR ---
RESTLESS. CONSTANTLY MOVING ABOUT IN THE BED. CONFUSED. NOT FOLLOWING VERBAL INSTRUCTIONS. ALERT. NEURO CHECKS WNL.
--- NOTE | 2019-06-14 03:23 | NUR ---
ASSESSMENT COMPLETED. SEE NURSING FLOW SHEET. REMAINS CONFUSED. CL IN REACH. BED IN LOW POSITION. ALARM AUDIBLE.
--- NOTE | 2019-06-14 04:14 | NUR ---
PT IS CALMER. REMAINS CONFUSED. NO ACUTE CHANGES NOTED.
[2019-06-14 04:40] LABS: BASOPHILS 0.2 % (0-2); EOSINOPHILS 0 % (0-7); HEMATOCRIT 36.4 % (42.0-54.0); IMMATURE GRANULOCYTES 0.2 % (0-5); LYMPHOCYTES 5.5 % (15-50); MCH 32.5 pg (26.0-34.0); MCV 98.6 fL (80.0-100.0); MEAN PLATELET VOLUME 10.2 fL (7.4-10.4); MONOCYTES 8.6 % (2-11); NEUTROPHILS 85.5 % (40-80); PLATELET COUNT 193 10x3/uL (130-400); RBC 3.69 10x6/uL (4.20-6.10); RDW 13.1 % (11.5-14.5)
[2019-06-14 04:53] LABS: WBC 6.4 10x3/uL (4.8-10.8)
[2019-06-14 05:01] LABS: ANION GAP 9.2 mmol/L (8-16); CALCIUM 10.3 mg/dL (8.5-10.1); CARBON DIOXIDE 29.5 mmol/L (21.0-32.0); CREATININE - SERUM 1.1 mg/dL (0.6-1.3); MAGNESIUM - SERUM 2.3 mg/dL (1.8-2.4); PHOSPHOROUS 2.4 mg/dL (2.5-4.9); POTASSIUM - SERUM 4.7 mmol/L (3.5-5.1)
--- NOTE | 2019-06-14 05:31 | NUR ---
IV INFILTRATED. DC'D WITH CATHETER INTACT. CONFUSED AND TRYING TO PULL BIPAP MASK OFF AND O2 MONITOR OFF FINGER.
--- NOTE | 2019-06-14 05:49 | NUR ---
PHOSPHORUS 2.4 PRN PHOSPHATE PACKET GIVEN PER ORDERS. CONFUSED AND TRYING TO PULL EVERYTHING OFF. RESTRAINTS IN PLACE.
--- NOTE | 2019-06-14 06:34 | NUR ---
SALINE LOCK SITED TO RIGHT FOREARM WITH 22 G CATHETER X2 STICKS.
--- NOTE | 2019-06-14 08:57 | NUR ---
0700 ASSESSMENT COMPLETE SQUIRMMING IN BED CONFUSED BPAP ON AT 35%
--- NOTE | 2019-06-14 08:58 | NUR ---
0830 SQUIRMMING ON BED NOTIFIED LUCRETIA MENCHACA, TO OBTAIN ABGs AND REMOVE BPAP AND PLACE ON NC
--- NOTE | 2019-06-14 10:57 | NUR ---
0900 RESTING QUIETLY HEART RATE SLOWED DOWN TO 89 NO DISTRESS NOTED
--- NOTE | 2019-06-14 11:02 | NUR ---
1000 TRYING TO CLIMB OUT OF BED REORIENTED REASSURED PATIENT THAT HE DIDNT NEED HIS CREDIT CARD SPOUSE AND SON CALLED UPDATE PROVIDED.
--- NOTE | 2019-06-14 13:27 | MORECARE ---
CASE MANAGEMENT DISCHARGE SUMMARY PATIENT: KARINA HODGES UNIT: [id number] ADM DATE: 06/12/19 AGE: 74 : 44 SEX: M ROOM/BED: D.2316 AUTHOR: TASNEEM,DOC PHYSICIAN: REFERRING PHYSICIAN: BRANDO ELIAS MD DATE OF SERVICE: 06/14/19 Discharge Plan Patient Name: KARINA HODGES Facility: [facility]:[place] : 1945 Planned Disposition: Home Anticipated Discharge Date: Discharge Date: Expected LOS: Initial Reviewer: [email or web address] Initial Review Date: 06/13/2019 Generated: 06/14/19 2:27 pm Comments DCP- Discharge Planning Updated by [email or web address]: Saskia Haas on 06/14/19 12:[address] LATE ENTRY 06/13/19 Patient Name: KARINA HODGES Admission Status: ER Accout number: [id number] Admission Date: 06-12-2019 : 1945 Admission Diagnosis:METABOLIC ENCEPHALOPATHY Attending: BRANDO ELIAS Current LOS: 1 Anticipated DC Date: Planned Disposition: Home Primary Insurance: MEDICARE A & B Discharge Planning Comments: CM met with patient at bedside after explaining CM role and obtaining verbal consent. Patient lives at home with his where he is independent with his care and plans to return there upon discharge. Patient feels this would be a safe discharge. CM discussed availability / needs of home health and medical equipment. Patient denies any discharge needs at this time. Patient states he will have his family drive him home upon discharge. CM will continue to follow and assist as needed with discharge planning / needs. Filament Tester: Saskia Haas DCPIA - Discharge Planning Initial Assessment Updated by [email or web address]: Saskia Haas on 06/14/19 1:21 pm * Is the patient Alert and Oriented? Yes * How many steps to enter\exit or inside your home? * PCP PULLIG * Pharmacy [facility] * Preadmission Environment Home with Family * ADLs Independent * Other Equipment W/C, WALKER, BSC, SC, CANE, NEBULIZER * List name and contact numbers for known caregivers / representatives who currently or will assist patient after discharge: DAJAMARGARITO HODGES - SPOUSE - [phone] OR [phone] * Verbal permission to speak to the caregivers and representatives has been obtained from the patient. Yes * Community resources currently utilized None * Additional services required to return to the preadmission environment? No * Can the patient safely return to the preadmission environment? Yes * Has this patient been hospitalized within the prior 30 days at any hospital? No Patient Name: KARINA HODGES Page 41117 at 1327 All edits/amendments must be made on the electronic document DICTATION DATE: 06/14/19 1327 COTTON BROKER: KIERSTEN 06/14/19 1327 RPT#: [id number] DC DATE: STATUS: ADM IN [facility] [address] [place] [address] END OF REPORT
--- NOTE | 2019-06-14 13:43 | NUR ---
1200 NURSE FED PATIENT TALKED ABOUT WHERE HE WAS FROM AND LIVED SEEMS MORE ORIENTED THAN THIS AM APPETITE GOOD RN SPOKE WITH BOTH HIS SONS ON THE PHONE
--- NOTE | 2019-06-14 13:53 | NUR ---
Nutrition follow-up: Diet: Low sodium mechanical soft (ground meats/gravy) with thin liquids Pt with very poor po intake due to confusion Labs reviewed WT: 145# Pt not meeting estimated energy needs at this time. Recommend nutrition support start within 24 hours RDN following.
--- NOTE | 2019-06-14 19:00 | NUR ---
recived report at bedside. pt is A&OX4. observed restraints bilat wrist. cap refill is less than 3 seconds with good cirulation. have recived in report that the pt has had episodes of confusion but has been alert for the past several hours. i will perform full assessment at this time. vitals are stable. bed is low,side raislx2,call light within reach. bed alarm is on.
--- NOTE | 2019-06-14 20:20 | NUR ---
noticed that pt was pulling at lines (EKG lines, pulse ox line). went to assess him and asked why he had taken them off, he said "i want to pay my respects". i then asked pay respect to whom? he said" to all the veterans". when asked what the cords have anthing to do with that he said" im outside paying my respect". i tried to explain that the pt is inside and at the hospital. he does say "yes im at the hospital but im outside". i explained to him that he is inside the hospital and tried to orient him by explaining things around bernice room and what the wires are for for monitoring. pt contionus to try to pull at cords and make them into a ball. restraints are on bilat rist still as ordered. no neruo changes are noted since intial assessment. vital signs are stable. i will continue to monitor
--- NOTE | 2019-06-14 20:25 | NUR ---
put BIPAP back on since pt is confused with all other vitals signs stable. he may be retaining co2. will continue to monitor
--- NOTE | 2019-06-14 20:40 | NUR ---
notified at [phone] since she is emergency contact. i just wanted to inform her of his confusion and disorientation. she voiced"yes he has been having trouble understanding". she appreciated my call and asked to not hesitate to call during the night bc she will be awake.
--- NOTE | 2019-06-14 21:42 | NUR ---
pt seems to be calmer. he is resting in bed with eyes closed. bipap is on. vitals are stable. bed is low,side raislx2,call light within reahc. bed alarm is on. will continue to monitor
--- NOTE | 2019-06-14 22:15 | NUR ---
BIPAP MACHINE WAS BEEPING FROM ROOM. ASSESSED PT AND BIPAP MASK WAS DOWN ON PT CHIN. REAJUSTED ON FACE. PT TOLERATED WELL HOWEVER IS STILL CONFUSED. HE BELIVES HE IS OUTSIDE AND WANTS TO COME INSIDE. I HAVE TRIED TO REORIENT WITHOUT SUCCESS. VITAL SIGNS ARE STABLE. BED IS LOW,SIDE RAAILSX2, CALL LIGHT WITHIN REACH. BED ALARM IS ON.
--- NOTE | 2019-06-14 23:12 | NUR ---
BIPAP MACHING WAS BEEPING IN ROOM. WENT TO ASSESS AND PT HAS BIPAP ON LEFT SIDE OF FACE, NOT IN THE CORRECT PLACE. WHEN ASKED IF HE IS MOVING IT, HE VOICES"I DONT KNOW, ITS JUST HAPPENING". VITAL SIGNS ARE STABLE. REPLACED BIPAP MASK BACK ON AND REAJUSTED. NO C/O WERE GIVEN AT THIS TIME. BED IS LOW,SIDE RAISLX2,CALL LIGHT WITHIN REACH. BED ALARM IS ON
[2019-06-15] VITALS (18 sets, daily range): BP systolic 97–154; BP diastolic 63–83; Ht 172.7 cm; Wt 61.7 kg
--- NOTE | 2019-06-15 00:35 | NUR ---
pt once again has disconnected his bipap from the machine by pulling at the tubes even with restraints on and he is rocking back in forth in the bed. neuro checks show no change and are stable. . vital signs are stable. re-adjusted restraints. am going to consider Ativan that is ordered prn for agitation. this is the 3rd time in 10 minutes that i have had to go into the pt room to re-connect bipap and i also had to reconnect hansen cathetor with new stat lock on leg bc the pt had broken his off. bed is low,side railsx2,call light within reach. will continue to monitor bed alarm is on
--- NOTE | 2019-06-15 02:00 | NUR ---
pt is resting in bed with eyes closed. vitals are stable. bipap is on. restraints observed. bed is low,side railsx2,call light within reach. bed alarm is on will continue to monitor
--- NOTE | 2019-06-15 04:25 | NUR ---
PT IS RESTING IN BED WITH EYES CLOSED. BIPAP IS ON. VITAL SIGNS ARE STABLE. BED IS LOW,SIDE RAILSX2,CALL LIGHT WITHIN REACH. BED ALARM IS ON. WILL CONTINUE TO MONITOR
[2019-06-15 04:54] LABS: BASOPHILS 0.1 % (0-2); EOSINOPHILS 0 % (0-7); HEMATOCRIT 38.7 % (42.0-54.0); HEMOGLOBIN 13.1 g/dL (13.5-17.5); IMMATURE GRANULOCYTES 0.3 % (0-5); LYMPHOCYTES 4.6 % (15-50); MCH 33.2 pg (26.0-34.0); MCHC 33.9 g/dL (31.0-37.0); MCV 98.2 fL (80.0-100.0); MEAN PLATELET VOLUME 10.3 fL (7.4-10.4); MONOCYTES 8.2 % (2-11); NEUTROPHILS 86.8 % (40-80); PLATELET COUNT 200 10x3/uL (130-400); RBC 3.94 10x6/uL (4.20-6.10); RDW 12.7 % (11.5-14.5); WBC 7.8 10x3/uL (4.8-10.8)
[2019-06-15 05:07] LABS: ANION GAP 8.4 mmol/L (8-16); CALCIUM 10.1 mg/dL (8.5-10.1); CARBON DIOXIDE 33.9 mmol/L (21.0-32.0); CREATININE - SERUM 1.1 mg/dL (0.6-1.3); MAGNESIUM - SERUM 2.1 mg/dL (1.8-2.4); PHOSPHOROUS 2.9 mg/dL (2.5-4.9); POTASSIUM - SERUM 4.3 mmol/L (3.5-5.1)
--- NOTE | 2019-06-15 06:30 | NUR ---
PT IS RESTING IN BED WITH EYES CLOSED. AROUSES EASILY BUT THEN FALLS BACK TO SLEEP. BIPAP IS ON. VITAL SIGNS ARE STABLE. BED IS LOW,SIDE RAISLX2,CALL LIGHT WITHIN REACH. BED ALARM IS ON
--- NOTE | 2019-06-15 10:45 | NUR ---
0900 PATIENTS SON CALLED FROM FROM [place] UPDATE PROVIDED WANTING TO TALK TO DR. DANIEL GARCIA OF REQUEST
--- NOTE | 2019-06-15 10:45 | NUR ---
0700 ASLEEP WITH BPAP 40% 02 ASSESSMENT COMPLETE
[2019-06-15 17:23] LABS: BASOPHILS 0.2 % (0-2); EOSINOPHILS 0 % (0-7); HEMATOCRIT 42.6 % (42.0-54.0); HEMOGLOBIN 14.3 g/dL (13.5-17.5); IMMATURE GRANULOCYTES 0.3 % (0-5); LYMPHOCYTES 12.8 % (15-50); MCH 33.2 pg (26.0-34.0); MCHC 33.6 g/dL (31.0-37.0); MCV 98.8 fL (80.0-100.0); MEAN PLATELET VOLUME 9.8 fL (7.4-10.4); NEUTROPHILS 82.7 % (40-80); PLATELET COUNT 179 10x3/uL (130-400); RBC 4.31 10x6/uL (4.20-6.10); WBC 11.6 10x3/uL (4.8-10.8)
[2019-06-15 17:29] LABS: CALCIUM 10.3 mg/dL (8.5-10.1); CARBON DIOXIDE 35.8 mmol/L (21.0-32.0); CHOL - HDL RATIO 3.6 ratio (2.3-4.9); CREATININE - SERUM 1.3 mg/dL (0.6-1.3); POTASSIUM - SERUM 3.8 mmol/L (3.5-5.1)
--- NOTE | 2019-06-15 18:28 | NUR ---
[address]F [address] ELIAS CALLED AND SPOKE WITH PATIENTS SON AND ANSWERED HIS QUESTIONS
--- NOTE | 2019-06-15 18:31 | NUR ---
1500 SPOUSE AT BEDSIDE VISITING PATIENT UPDATED HER ON PATIENTS PROGRESS
--- NOTE | 2019-06-15 18:33 | NUR ---
1530 TAKEN TO SPEECH LAB FOR MODIFIED BARIUM SWALLOW STUDY.
--- NOTE | 2019-06-15 18:34 | NUR ---
5575 CARDIOLOGY REMOTE CONTROL MIRROR INSTALLER ASSESSING PATIENT AT BEDSIDE
--- NOTE | 2019-06-15 18:34 | NUR ---
1700 NEW ORDERS NOTED FOR HEART CATH PER DR RANGEL 06/16 APPROXIMATELY 1300
--- NOTE | 2019-06-15 18:37 | NUR ---
1800 PHONE CONSENT FROM SPOUSE COMPLETED AND SIGNED FOR BLOOD AND HEART CATH
--- NOTE | 2019-06-15 21:20 | NUR ---
PATIENT IS ALERT AND ORIENTED EXCEPT HE THINKS THEY KEPT HIM IN A USP LAST NIGHT AND WOULD NOT LET HIM SET DOWN. O2 AT 3 LITER VIA NC, IV ACCESS RIGHT WRIST SL, ROJO CATH, WILL CONTINUE TO MONITOR.
--- NOTE | 2019-06-15 23:01 | NUR ---
PATIENT SLEEPING RESPIRATION EVEN AND UN LABORED.
[2019-06-16] VITALS (17 sets, daily range): BP systolic 84–123; BP diastolic 60–79
--- NOTE | 2019-06-16 00:37 | NUR ---
PATIENT LAYING IN BED WATCHING TV. WEARING HIS BIPAP, NO DISTRESS NOTED.
--- NOTE | 2019-06-16 02:05 | NUR ---
PATIENT IS SLEEPING QUIETLY IN BED WEARING HIS BIPAP.
[2019-06-16 03:39] LABS: BASOPHILS 0.1 % (0-2); EOSINOPHILS 0 % (0-7); HEMATOCRIT 41.3 % (42.0-54.0); HEMOGLOBIN 13.5 g/dL (13.5-17.5); IMMATURE GRANULOCYTES 0.4 % (0-5); LYMPHOCYTES 4.8 % (15-50); MCH 32.7 pg (26.0-34.0); MCHC 32.7 g/dL (31.0-37.0); MONOCYTES 6.1 % (2-11); NEUTROPHILS 88.6 % (40-80); PLATELET COUNT 191 10x3/uL (130-400); RBC 4.13 10x6/uL (4.20-6.10); RDW 12.9 % (11.5-14.5); WBC 9.2 10x3/uL (4.8-10.8)
[2019-06-16 03:51] LABS: CALCIUM 10.1 mg/dL (8.5-10.1); CARBON DIOXIDE 36.8 mmol/L (21.0-32.0); CREATININE - SERUM 1.2 mg/dL (0.6-1.3); MAGNESIUM - SERUM 2.2 mg/dL (1.8-2.4); PHOSPHOROUS 3.7 mg/dL (2.5-4.9); POTASSIUM - SERUM 4.8 mmol/L (3.5-5.1)
--- NOTE | 2019-06-16 07:00 | NUR ---
REC'D REPORT AND RESUMED CARE, SLEEPING WITH NO SIGNS OF DISTRESS, AROUSABLE TO VERBAL STIMULI, VSS, DENIES PAIN, ASSESSMENT COMPLETED PER FLOWSHEET, CALL LIGHT IN REACH, NO NEEDS AT THIS TIME
--- NOTE | 2019-06-16 07:09 | NUR ---
Nutrition follow-up: Pt s/p MBSS Diet: mechanical soft with ground meat/gravy, thin liquids PO intake continues to be poor 2/2 bipap, confusion Labs reviewed NPO for heart cath today May need to consider PEG tube placement and nutrition support if po intake does not improve. RDN following.
--- NOTE | 2019-06-16 11:00 | NUR ---
RESTING WITH NO SIGN OF DISTRESS, VSS, NO ACUTE CHANGE FROM PREVIOUS ASSESSMENT
--- NOTE | 2019-06-16 13:15 | NUR ---
TO DEPUTY SHERIFF CUSTODY WITH PERSONNEL X 2 FOR PENDING CATH
--- NOTE | 2019-06-16 14:45 | NUR ---
BACK FROM SAMPLE BODY BUILDER BRYANNA, FALLS ASLEEP IN GENERAL CONVERSATION, VSS, RIGHT GROIN WITH CDI DRESSING, NO HEMATOMA OR ERYTHEMA NOTED, PEDAL PULSES PALPABLE, NO OTHER ACUTE CHANGE FROM PREVIOUS
--- NOTE | 2019-06-16 16:45 | NUR ---
CALLED TO ROOM, C/O RIGHT ARM TIGHT, COOL TO TOUCH, NOTED PIV INFILTRATED, IVF STOPPED, WARM PACK PLACED AND ARM ELEVATED TO PILLOW, PIV RESITED TO LEFT FA 22G WITH ATTEMPTS X1, TOLERATED WITHOUT DIFFICULTY
--- NOTE | 2019-06-16 17:15 | NUR ---
DINNER TRAY TO BEDSIDE
--- NOTE | 2019-06-16 19:30 | NUR ---
RECEIVED CARE OF PT, ASSESSMENT PER FLOWSHEET. PT ALERT AND ORIENTED X 4, SITTING UP IN BED WATCHING TV IN NO APPARENT DISTRESS, HR SR ON CM, PPP, RT GROIN SITE DRESSING CDI, SOFT TO PALP WITH NO S/S OF HEMATOMA FORMATION. PT DENIES PAIN OR ANY NEEDS AT THIS TIME. BED LOW, CALL LIGHT IN REACH.
--- NOTE | 2019-06-16 21:20 | NUR ---
NO VISITORS PRESENT AT THIS TIME, PT DENIES ANY NEEDS, CALL LIGHT IN REACH.
--- NOTE | 2019-06-16 23:15 | NUR ---
REASSESSMENT PER FLOWSHEET, NO ACUTE CHANGES NOTED AT THIS TIME. HR REMAINS SR ON CM, CALL LIGHT IN REACH.
[2019-06-17] VITALS (14 sets, daily range): BP systolic 107–126; BP diastolic 55–85
--- NOTE | 2019-06-17 03:15 | NUR ---
REASSESSMENT PER FLOWSHEET, NO ACUTE CHANGES NOTED AT THIS TIME. ICE WATER PROVIDED PER REQUEST, ALL OTHER NEEDS DENIED.
[2019-06-17 04:01] LABS: BASOPHILS 0.1 % (0-2); EOSINOPHILS 0 % (0-7); HEMOGLOBIN 12.5 g/dL (13.5-17.5); IMMATURE GRANULOCYTES 0.9 % (0-5); LYMPHOCYTES 5.6 % (15-50); MCH 32.8 pg (26.0-34.0); MCHC 32.9 g/dL (31.0-37.0); MCV 99.7 fL (80.0-100.0); MONOCYTES 7.7 % (2-11); NEUTROPHILS 85.7 % (40-80); PLATELET COUNT 171 10x3/uL (130-400); RBC 3.81 10x6/uL (4.20-6.10); WBC 9.2 10x3/uL (4.8-10.8)
[2019-06-17 04:24] LABS: CALC OSMOLALITY 291 mosm/kg (275-300); CALCIUM 9.5 mg/dL (8.5-10.1); CARBON DIOXIDE 33.5 mmol/L (21.0-32.0); CHLORIDE - SERUM 107 mmol/L (98-107); CREATININE - SERUM 0.9 mg/dL (0.6-1.3); GLUCOSE 132 mg/dL (74-106); MAGNESIUM - SERUM 2.1 mg/dL (1.8-2.4); PHOSPHOROUS 2.7 mg/dL (2.5-4.9); POTASSIUM - SERUM 4.7 mmol/L (3.5-5.1); SODIUM 142 mmol/L (136-145); UREA NITROGEN 31 mg/dL (7-18); eGFR NON AFRICAN AMERICAN 87 mL/min (90-120)
--- NOTE | 2019-06-17 05:00 | NUR ---
AM LABS REVIEWED, NOTHING TO TREAT PER ELECTROLYTE PROTOCOL. PT DENIES PAIN OR ANY NEEDS, NO VISITORS PRESENT AT THIS TIME.
--- NOTE | 2019-06-17 07:53 | NUR ---
UP IN BED AT THIS TIME. VSS. NO ACUTE DISTRESS NOTED. PT ALERT AND ORIENTED. WILL CONTINUE PLAN OF CARE.
--- NOTE | 2019-06-17 09:55 | NUR ---
UP IN BED AWAKE TALKING ON PHONE AT THIS TIME. VSS. NO ACUTE DISTRESS NOTED. WILL CONTINUE PLAN OF CARE.
--- NOTE | 2019-06-17 11:55 | NUR ---
UP IN BED EATING LUNCH AT THIS TIME. VSS. NO ACUTE DISTRESS NOTED. CALL LIGHT IN REACH. WILL CONTINUE PLAN OF CARE.
--- NOTE | 2019-06-17 12:21 | NUR ---
ROJO DCD AT THIS TIME PER PHYSICIAN ORDERS, CATHETER TIP INTACT.
--- NOTE | 2019-06-17 13:46 | NUR ---
NOTED PT TO TRANSFER TO 2107, REPORT CALLED TO RECIEVING NURSE. WILL TRANSFER PT SHORTLY.
--- NOTE | 2019-06-17 13:46 | NUR ---
RECEIVED REPORT FROM MADISON NÚÑEZ.
--- NOTE | 2019-06-17 14:14 | NUR ---
TRANSFERRED TO ROOM 2108 AT THIS TIME VIA WHEELCHAIR WITH ALL PERSONAL ITEMS. VSS. NO ACUTE DISTRESS NOTED. NO FURTHER ACTIONS.
--- NOTE | 2019-06-17 14:19 | NUR ---
1410-RECEIVED VIA WHEELCHAIR AND PORTABLE OXYGEN TO ROOM. RIGHT ARM IS SLIGHTLY SWOLLEN THAN LEFT. BRUISE SEEN TO INNER RIGHT UPPER ARM. ON 2L PER NC. BED ALARM ON AND IN USE. CALL LIGHT IN USE. VOIDS 250 CC TO URINAL. WILL CONTINUE PLAN OF CARE.
--- NOTE | 2019-06-17 17:24 | NUR ---
DENIES NEEDS AT THIS TIME. IV IRON INFUSING WITHOUT PROBLEMS. CALL LIGHT AND BED ALARM IN USE.
--- NOTE | 2019-06-17 19:07 | NUR ---
RECEIVED UP IN BED WITH EYES OPEN AND TV ON. ALERT AND ORIENTED X4. UP AD CHIQUITA TO B/R. O2@3 LITERS PER N/C. RESP EVEN AND UNLABORED. IV TO LT AND RT AC SL.. TELEMETRY IN PLACE. DENIES ANY NEEDS AT THIS TIME.
[2019-06-18 00:30] VITALS: BP 107/62
[2019-06-18 04:30] VITALS: BP 103/58
--- NOTE | 2019-06-18 07:20 | NUR ---
RECIEVE REPORT. RESTING IN BED WITH EYES CLOSED. O2 @ 4L NC. RESPIRATIONS NONLABORED. CONTINUE PLAN OF CARE AND SAFETY PRECAUTIONS.
[2019-06-18 08:06] VITALS: BP 97/55
[2019-06-18 11:47] VITALS: BP 99/60
[2019-06-18 15:55] VITALS: BP 110/67
--- NOTE | 2019-06-18 19:48 | NUR ---
RECEIVED BEDSIDE SHIFT REPORT. UP IN BED WITH EYES OPEN. ALERT AND ORIENTED X4. UP AD CHIQUITA. O2@ 4 LITERS PER N/C IN PLACE. IV TO RT AND LT AC'S SL.. TELEMETRY IN PLACE. USES URINAL IN BED. DENIES ANY NEEDS AT THIS TIME.
[2019-06-18 20:30] VITALS: BP 100/60
[2019-06-19 00:30] VITALS: BP 114/71
[2019-06-19 04:30] VITALS: BP 106/59
--- NOTE | 2019-06-19 07:20 | NUR ---
RECIEVE REPORT. RESTING IN BED WITH EYES CLOSED. O2 @ 4L NC. RESPIRATIONS NONLABORED. CONTINUE PLAN OF CARE AND SAFETY PRECAUTIONS.
[2019-06-19 08:43] VITALS: BP 95/58
[2019-06-19 11:46] VITALS: BP 109/58
--- NOTE | 2019-06-19 12:20 | NUR ---
Rehab Note- Acute Inpatient Rehab prescreen order received. THe patient has a pending PT Eval at this time. Will follow at this time for possible need of acute inpatient rehab. Thank you for this referral! Aniyah Lockwood RN Clinical Liaison, [facility] Rehab
[2019-06-19 15:58] VITALS: BP 105/56
--- NOTE | 2019-06-19 16:56 | MORECARE ---
CASE MANAGEMENT DISCHARGE SUMMARY PATIENT: KARINA HODGES UNIT: [id number] ADM DATE: 06/12/19 AGE: 74 : 43 SEX: M ROOM/BED: D.2100 AUTHOR: TASNEEM,DOC PHYSICIAN: REFERRING PHYSICIAN: BRANDO ELIAS MD DATE OF SERVICE: 06/19/19 Discharge Plan Patient Name: KARINA HODGES Facility: [facility]:[place] : 1945 Planned Disposition: Home Anticipated Discharge Date: Discharge Date: Expected LOS: Initial Reviewer: [email or web address] Initial Review Date: 06/13/2019 Generated: 06/19/19 5:56 pm DCP- Discharge Planning Updated by [email or web address]: Saskia Haas on 06/14/19 12:[address] LATE ENTRY 06/13/19 Patient Name: KARINA HODGES Admission Status: ER Accout number: [id number] Admission Date: 06-12-2019 : 1945 Admission Diagnosis:METABOLIC ENCEPHALOPATHY Attending: BRANDO ELIAS Current LOS: 1 Anticipated DC Date: Planned Disposition: Home Primary Insurance: MEDICARE A & B Discharge Planning Comments: CM met with patient at bedside after explaining CM role and obtaining verbal consent. Patient lives at home with his where he is independent with his care and plans to return there upon discharge. Patient feels this would be a safe discharge. CM discussed availability / needs of home health and medical equipment. Patient denies any discharge needs at this time. Patient states he will have his family drive him home upon discharge. CM will continue to follow and assist as needed with discharge planning / needs. Charging Machine Operator: Saskia Haas DCPIA - Discharge Planning Initial Assessment Updated by [email or web address]: Saskia Haas on 06/14/19 1:21 pm * Is the patient Alert and Oriented? Yes * How many steps to enter\exit or inside your home? * PCP PULLIG * Pharmacy [facility] * Preadmission Environment Home with Family * ADLs Independent * Other Equipment W/C, WALKER, BSC, SC, CANE, NEBULIZER * List name and contact numbers for known caregivers / representatives who currently or will assist patient after discharge: DAJA HODGES - [facility] - [phone] OR [phone] * Verbal permission to speak to the caregivers and representatives has been obtained from the patient. Yes * Community resources currently utilized None * Additional services required to return to the preadmission environment? No * Can the patient safely return to the preadmission environment? Yes * Has this patient been hospitalized within the prior 30 days at any hospital? No External Providers External Provider: ROLAYong Next Contact Date: 06/19/2019 Service Request Date: Service Type: Resolution: Reviewer: Comments: Last DP export: 06/14/19 12:27 p Patient Name: KARINA HODGES Page 11171 at 1656 All edits/amendments must be made on the electronic document DICTATION DATE: 06/19/191655 CLOTH WINDING SUPERVISOR: KIERSTEN 06/19/191655 RPT#: [id number] DC DATE: STATUS: ADM IN [facility] [address] [place] [address] END OF REPORT
--- NOTE | 2019-06-19 17:21 | MORECARE ---
CASE MANAGEMENT DISCHARGE SUMMARY PATIENT: KARINA HODGES UNIT: [id number] ADM DATE: 06/12/19 AGE: 74 : 43 SEX: M ROOM/BED: D.2104 AUTHOR: TASNEEM,DOC PHYSICIAN: REFERRING PHYSICIAN: BRANDO ELIAS MD DATE OF SERVICE: 06/19/19 Discharge Plan Patient Name: KARINA HODGES Facility: [facility]:[place] : 1945 Planned Disposition: Home Anticipated Discharge Date: Discharge Date: Expected LOS: Initial Reviewer: [email or web address] Initial Review Date: 06/13/2019 Generated: 06/19/19 6:20 pm DCP- Discharge Planning Updated by [email or web address]: Saskia Haas on 06/14/19 12:[address] LATE ENTRY 06/13/19 Patient Name: KARINA HODGES Admission Status: ER Accout number: [id number] Admission Date: 06-12-2019 : 1945 Admission Diagnosis:METABOLIC ENCEPHALOPATHY Attending: BRANDO ELIAS Current LOS: 1 Anticipated DC Date: Planned Disposition: Home Primary Insurance: MEDICARE A & B Discharge Planning Comments: CM met with patient at bedside after explaining CM role and obtaining verbal consent. Patient lives at home with his where he is independent with his care and plans to return there upon discharge. Patient feels this would be a safe discharge. CM discussed availability / needs of home health and medical equipment. Patient denies any discharge needs at this time. Patient states he will have his family drive him home upon discharge. CM will continue to follow and assist as needed with discharge planning / needs. Spear Fisher: Saskia Haas DCPIA - Discharge Planning Initial Assessment Updated by [email or web address]: Saskia Haas on 06/14/19 1:21 pm * Is the patient Alert and Oriented? Yes * How many steps to enter\exit or inside your home? * PCP PULLIG * Pharmacy [facility] * Preadmission Environment Home with Family * ADLs Independent * Other Equipment W/C, WALKER, BSC, SC, CANE, NEBULIZER * List name and contact numbers for known caregivers / representatives who currently or will assist patient after discharge: DAJA HODGES - [facility] - [phone] OR [phone] * Verbal permission to speak to the caregivers and representatives has been obtained from the patient. Yes * Community resources currently utilized None * Additional services required to return to the preadmission environment? No * Can the patient safely return to the preadmission environment? Yes * Has this patient been hospitalized within the prior 30 days at any hospital? No External Providers External Provider: [facility] Next Contact Date: 06/20/2019 Service Request Date: Service Type: Resolution: Reviewer: Comments: Last DP export: 06/19/19 3:56 pm Patient Name: KARINA HODGES Page 36020 at 1721 All edits/amendments must be made on the electronic document DICTATION DATE: 06/19/191719 [facility]ICU RN: KIERSTEN 06/19/191719 RPT#: [id number] DC DATE: STATUS: ADM IN [facility] [address] [place] [address] END OF REPORT
--- NOTE | 2019-06-19 17:30 | MORECARE ---
CASE MANAGEMENT DISCHARGE SUMMARY PATIENT: KARINA HODGES UNIT: [id number] ADM DATE: 06/12/19 AGE: 74 : 44 SEX: M ROOM/BED: D.210 AUTHOR: TASNEEM,DOC PHYSICIAN: REFERRING PHYSICIAN: BRANDO ELIAS MD DATE OF SERVICE: 06/19/19 Discharge Plan Patient Name: KARINA HODGES Facility: [facility]:[place] : 1945 Planned Disposition: Home Health Service Anticipated Discharge Date: 06/20/19 Discharge Date: Expected LOS: 8 Initial Reviewer: [id number] Initial Review Date: 06/13/2019 Generated: 06/19/19 6:29 pm Comments DCP- Discharge Planning Updated by [id number]: Kolby Yang on 06/19/19 4:[address] Patient Name: KARINA HODGES Encounter No: [id number] : 1945 Primary Insurance: MEDICARE A & B Anticipated DC Date: 06-20-2019 Planned Disposition: Home Health Service External Planned Provider: [facility] DCP follow-up note: CM RECEIVED OXYGEN TESTING AND HOME HEALTH ORDER. CM MET WITH PT IN ROOM AND DISCUSSED DISCHARGE PLANNING AND NEEDS. PT DOES NOT WANT TO GO TO INPATIENT REHAB, HE WANTS TO GO HOME. PT WOULD LIKE HOME HEALTH WITH [facility] THAT IS WHO HE USED FOR HIS . CHOICE SIGNED. PT WOULD LIKE OXYGEN WITH [facility], THEY USE [facility] FOR HIS ALREADY. CHOICE SIGNED. IMPORTANT MESSAGE RFROM MEDICARE PROVIDED AND EXPLAINED. PT INFORMED CM THAT DR. FANG TOLD PT THAT HE CAN GO HOME TOMORROW, PT REPORTS HAVING A FRIEND TO PICK HIM UP TOMORROW. CM CALLED [facility], , SPOKE TO ANN WHO TOOK OXYGEN ORDER. CM FAXED OXYGEN ORDER TO [facility] AT [phone]. [facility] TO ARRANGE PORTABLE OXYGEN TO HOPITAL ROOM AND HOME OXYGEN AND NEBULIZER FOR HOME DELIVERY AFTER PT ARRIVES HOME TODAY. CM RECEIVED HOME HEALTH ORDER, CALLED [facility], , SPOKE TO [facility] SERVICE WHO ADVISED THE OFFICE CLOSED 13 MINUTES AGO; CM FAXED REFERRAL TO [facility] AT [phone]. CM TO FOLLOW UP WITH REFERRAL TO [facility] IN THE MORNING, 06-20-19, TO CONFIRM ACCEPTANCE. Kolby Yang, CASE MANAGEMENT DCP- Discharge Planning Updated by [id number]: Saskia Haas on 06/14/19 12:[address] LATE ENTRY 06/13/19 Patient Name: KARINA HODGES Admission Status: ER Accout number: [id number] Admission Date: 06-12-2019 : 1945 Admission Diagnosis:METABOLIC ENCEPHALOPATHY Attending: BRANDO ELIAS Current LOS: 1 Anticipated DC Date: Planned Disposition: Home Primary Insurance: MEDICARE A & B Discharge Planning Comments: CM met with patient at bedside after explaining CM role and obtaining verbal consent. Patient lives at home with his where he is independent with his care and plans to return there upon discharge. Patient feels this would be a safe discharge. CM discussed availability / needs of home health and medical equipment. Patient denies any discharge needs at this time. Patient states he will have his family drive him home upon discharge. CM will continue to follow and assist as needed with discharge planning / needs. Cafe Associate: Saskia Haas DCPIA - Discharge Planning Initial Assessment Updated by [id number]: Saskia Haas on 06/14/19 1:21 pm * Is the patient Alert and Oriented? Yes * How many steps to enter\exit or inside your home? * PCP CELI * Pharmacy [facility] * Preadmission Environment Home with Family * ADLs Independent * Other Equipment W/C, WALKER, BSC, SC, CANE, NEBULIZER * List name and contact numbers for known caregivers / representatives who currently or will assist patient after discharge: DAJA HODGES - [facility] - [phone] OR [phone] * Verbal permission to speak to the caregivers and representatives has been obtained from the patient. Yes * Community resources currently utilized None * Additional services required to return to the preadmission environment? No * Can the patient safely return to the preadmission environment? Yes * Has this patient been hospitalized within the prior 30 days at any hospital? No Coverage Notice Reviewer: [id number] - Kolby Yang Notice Issued Date-Time: 06/19/2019 16:10 Notice Type: IM Discharge Notice Notice Delivered To: Patient Relationship to Patient: Able Seaman Name: Delivery Method: HAND - Hand Delivered Jessica Days: Prior Verbal Notification: Recipient Understood Notice: Yes Recipient Signature: Yes Med Rec Note Co-signed by Attending: Coverage Notice Comment: Reviewer: [id number] - Kolby Yang Notice Issued Date-Time: 06/19/2019 16:10 Notice Type: Patient Choice Letter Notice Delivered To: Patient Relationship to Patient: Able Seaman Name: Delivery Method: HAND - Hand Delivered Jessica Days: Prior Verbal Notification: Recipient Understood Notice: Yes Recipient Signature: Yes Med Rec Note Co-signed by Attending: Coverage Notice Comment: [facility] DP export: 06/19/19 4:21 pm Patient Name: KARINA HODGES Page 30079 at 1730 All edits/amendments must be made on the electronic document DICTATION DATE: 06/19/191728 SERICULTURE TEACHER: KIERSTEN 06/19/191728 RPT#: [id number] DC DATE: STATUS: ADM IN [facility] [address] [place] [address] END OF REPORT
--- NOTE | 2019-06-19 19:23 | NUR ---
RECEIVED UP IN BED WITH EYE OPEN. ALERT AND ORIENTED X4. UP AD CHIQUITA TO B/R. IV TO LT FA AND RT AC SL.. TELEMETRY IN PLACE. DENIES ANY NEEDS AT THIS TIME.
[2019-06-19 20:00] VITALS: BP 113/61
[2019-06-20 00:55] VITALS: BP 115/64
[2019-06-20 06:35] LABS: BASOPHILS 0.1 % (0-2); EOSINOPHILS 1.3 % (0-7); HEMATOCRIT 38.2 % (42.0-54.0); HEMOGLOBIN 12.9 g/dL (13.5-17.5); IMMATURE GRANULOCYTES 5.6 % (0-5); LYMPHOCYTES 13.7 % (15-50); MCH 32.5 pg (26.0-34.0); MCHC 33.8 g/dL (31.0-37.0); MCV 96.2 fL (80.0-100.0); MEAN PLATELET VOLUME 10.5 fL (7.4-10.4); MONOCYTES 6.6 % (2-11); NEUTROPHILS 72.7 % (40-80); RBC 3.97 10x6/uL (4.20-6.10); RDW 12.7 % (11.5-14.5); WBC 11.9 10x3/uL (4.8-10.8)
[2019-06-20 06:37] LABS: PLATELET COUNT 218 10x3/uL (130-400)
[2019-06-20 06:39] LABS: CALC OSMOLALITY 279 mosm/kg (275-300); CALCIUM 8.7 mg/dL (8.5-10.1); CARBON DIOXIDE 33.2 mmol/L (21.0-32.0); CHLORIDE - SERUM 105 mmol/L (98-107); CREATININE - SERUM 0.9 mg/dL (0.6-1.3); POTASSIUM - SERUM 3.3 mmol/L (3.5-5.1); SODIUM 139 mmol/L (136-145); UREA NITROGEN 20 mg/dL (7-18); eGFR NON AFRICAN AMERICAN 87 mL/min (90-120)
[2019-06-20 06:43] LABS: GLUCOSE 77 mg/dL (74-106)
--- NOTE | 2019-06-20 07:50 | NUR ---
PT LYING IN BED. EYES CLOSED. CHEST RISING AND FALLING. BED LOW. CL IN REACH.
--- NOTE | 2019-06-20 09:22 | MORECARE ---
CASE MANAGEMENT DISCHARGE SUMMARY PATIENT: KARINA HODGES UNIT: [id number] ADM DATE: 06/12/19 AGE: 74 : 44 SEX: M ROOM/BED: D.2109 AUTHOR: TASNEEM,DOC PHYSICIAN: REFERRING PHYSICIAN: BRANDO ELIAS MD DATE OF SERVICE: 06/20/19 Discharge Plan Patient Name: KARINA HODGES Facility: [facility]:[place] : 1945 Planned Disposition: Home Health Service Anticipated Discharge Date: 06/20/19 Discharge Date: Expected LOS: 8 Initial Reviewer: [id number] Initial Review Date: 06/13/2019 Generated: 06/20/19 10:22 am Comments DCP- Discharge Planning Updated by [id number]: Kolby Yang on 06/20/19 8:[address] Patient Name: KARINA HODGES Encounter No: [id number] : 1945 Primary Insurance: MEDICARE A & B Anticipated DC Date: 06-20-2019 Planned Disposition: Home Health Service External Planned Provider: [facility] [place] DCP follow-up note: CM RECEIVED NEBULIZER ORDER. CM CALLED [facility], , SPOKE TO ANN WHO TOOK NEBULIZER ORDER. CM FAXED NEBULIZER ORDER TO [facility] AT [phone]. [facility] TO ARRANGE NEBULIZER TO HOPITAL ROOM. CM CALLED [facility], , SPOKE TO SARAI WHO ADVISED [facility] WILL ACCEPT FOR HOME HEALTH. FOR DISCHARGE, FAX DISCHARGE INFORMATION TO [facility] [place] AT [phone]. Kolby Yang, CASE MANAGEMENT DCP- Discharge Planning Updated by [email or web address]: Kolby Yang on 06/19/19 4:[address] Patient Name: KARINA HODGES Encounter No: [id number] : 1945 Primary Insurance: MEDICARE A & B Anticipated DC Date: 06-20-2019 Planned Disposition: Home Health Service External Planned Provider: [facility] [place] DCP follow-up note: CM RECEIVED OXYGEN TESTING AND HOME HEALTH ORDER. CM MET WITH PT IN ROOM AND DISCUSSED DISCHARGE PLANNING AND NEEDS. PT DOES NOT WANT TO GO TO INPATIENT REHAB, HE WANTS TO GO HOME. PT WOULD LIKE HOME HEALTH WITH [facility] THAT IS WHO HE USED FOR HIS . CHOICE SIGNED. PT WOULD LIKE OXYGEN WITH [facility], THEY USE [facility] FOR HIS ALREADY. CHOICE SIGNED. IMPORTANT MESSAGE RFROM MEDICARE PROVIDED AND EXPLAINED. PT INFORMED CM THAT DR. FANG TOLD PT THAT HE CAN GO HOME TOMORROW, PT REPORTS HAVING A FRIEND TO PICK HIM UP TOMORROW. CM CALLED [facility], , SPOKE TO ANN WHO TOOK OXYGEN ORDER. CM FAXED OXYGEN ORDER TO [facility] AT [phone]. [facility] TO ARRANGE PORTABLE OXYGEN TO HOPITAL ROOM AND HOME OXYGEN AND NEBULIZER FOR HOME DELIVERY AFTER PT ARRIVES HOME TODAY. CM RECEIVED HOME HEALTH ORDER, CALLED [facility], , SPOKE TO ANSWERING SERVICE WHO ADVISED THE OFFICE CLOSED 13 MINUTES AGO; CM FAXED REFERRAL TO [facility] AT [phone]. CM TO FOLLOW UP WITH REFERRAL TO [facility] IN THE MORNING, 06-20-19, TO CONFIRM ACCEPTANCE. Kolby Yang, CASE MANAGEMENT DCP- Discharge Planning Updated by [id number]: Saskia Haas on 06/14/19 12:[address] LATE ENTRY 06/13/19 Patient Name: KARINA HODGES Admission Status: ER Accout number: [id number] Admission Date: 06-12-2019 : 1945 Admission Diagnosis:METABOLIC ENCEPHALOPATHY Attending: BRANDO ELIAS Current LOS: 1 Anticipated DC Date: Planned Disposition: Home Primary Insurance: MEDICARE A & B Discharge Planning Comments: CM met with patient at bedside after explaining CM role and obtaining verbal consent. Patient lives at home with his where he is independent with his care and plans to return there upon discharge. Patient feels this would be a safe discharge. CM discussed availability / needs of home health and medical equipment. Patient denies any discharge needs at this time. Patient states he will have his family drive him home upon discharge. CM will continue to follow and assist as needed with discharge planning / needs. Intermediate Teacher: Saskia Haas DCPIA - Discharge Planning Initial Assessment Updated by [id number]: Saskia Haas on 06/14/19 1:21 pm * Is the patient Alert and Oriented? Yes * How many steps to enter\exit or inside your home? * PCP PULLIG * Pharmacy [facility] * Preadmission Environment Home with Family * ADLs Independent * Other Equipment W/C, WALKER, BSC, SC, CANE, NEBULIZER * List name and contact numbers for known caregivers / representatives who currently or will assist patient after discharge: DAJA HODEGS - [facility] - [phone] OR [phone] * Verbal permission to speak to the caregivers and representatives has been obtained from the patient. Yes * Community resources currently utilized None * Additional services required to return to the preadmission environment? No * Can the patient safely return to the preadmission environment? Yes * Has this patient been hospitalized within the prior 30 days at any hospital? No Coverage Notice Reviewer: LYUDMILA Yang Notice Issued Date-Time: 06/19/2019 16:10 Notice Type: IM Discharge Notice Notice Delivered To: Patient Relationship to Patient: Scientific Programmer Analyst Name: Delivery Method: HAND - Hand Delivered Jessica Days: Prior Verbal Notification: Recipient Understood Notice: Yes Recipient Signature: Yes Med Rec Note Co-signed by Attending: Coverage Notice Comment: Reviewer: LYUDMILA Yang Notice Issued Date-Time: 06/19/2019 16:10 Notice Type: Patient Choice Letter Notice Delivered To: Patient Relationship to Patient: Scientific Programmer Analyst Name: Delivery Method: HAND - Hand Delivered Jessica Days: Prior Verbal Notification: Recipient Understood Notice: Yes Recipient Signature: Yes Med Rec Note Co-signed by Attending: Coverage Notice Comment: [facility] DP export: 06/19/19 4:30 pm Patient Name: KARINA HODGES Page 33924 at 0922 All edits/amendments must be made on the electronic document DICTATION DATE: 06/20/19921 ROTARY DRILLER: DM 06/20/19921 RPT#: [id number] DC DATE: STATUS: ADM IN [facility] [address] [place] [address] END OF REPORT
[2019-06-20] MEDS ORDERED: SYMBICORT 16010.2 GM INH (12:41)
[2019-06-20] MEDS ORDERED: PREDNISONE10 MG PO (12:41)
[2019-06-20] MEDS ORDERED: Nicoderm [PBKC] TRANSDERM (12:42)
[2019-06-20] MEDS ORDERED: IPRAT-ALBUT 0.5-3 ML INH (12:42)
[2019-06-20 12:56] VITALS: BP 115/66
--- NOTE | 2019-06-20 14:58 | NUR ---
RIGHT AC AND LEFT FA IV DC'D WIT CATH INTACT. TELEMETRY DC'D. DISCHARGE INSTRUCTIONS GIVEN TO PT. PT HAS NO FUTHER QUESTIONS. CHART COPY SIGNED. PT CALLED HIS RIDE.
--- NOTE | 2019-06-20 16:25 | NUR ---
I have reviewed this patient and I concur with the Shift Assessment completed by the Licensed Practical Nurse today this shift.
--- NOTE | 2019-06-20 16:26 | NUR ---
PT TAKEN DOWN VIA WC BY BIOSTATISTICS DIRECTOR AND LEFT WITH FRIEND IN PERSONAL VEHICLE.
--- NOTE | 2019-06-21 08:26 | MORECARE ---
CASE MANAGEMENT DISCHARGE SUMMARY PATIENT: KARINA HODGES UNIT: [id number] ADM DATE: 06/12/19 AGE: 74 : 44 SEX: M ROOM/BED: D.2101 AUTHOR: TASNEEM,DOC PHYSICIAN: REFERRING PHYSICIAN: BRANDO ELIAS MD DATE OF SERVICE: 06/21/19 Discharge Plan Patient Name: KARINA HODGES Facility: [facility]:[place] : 1945 Planned Disposition: Home Health Service Anticipated Discharge Date: 06/20/19 Discharge Date: 06/20/2019 Expected LOS: 8 Initial Reviewer: [email or web address] Initial Review Date: 06/13/2019 Generated: 06/21/19 9:26 am Comments DCP- Discharge Planning Updated by [email or web address]: Kolby Yang on 06/20/19 8:[address] Patient Name: KARINA HODGES Encounter No: [id number] : 1945 Primary Insurance: MEDICARE A & B Anticipated DC Date: 06-20-2019 Planned Disposition: Home Health Service External Planned Provider: [facility] [place] DCP follow-up note: CM RECEIVED NEBULIZER ORDER. CM CALLED [facility], , SPOKE TO ANN WHO TOOK NEBULIZER ORDER. CM FAXED NEBULIZER ORDER TO [facility] AT [phone]. [facility]. CM CALLED [facility], , SPOKE TO SARAI WHO ADVISED [facility] WILL ACCEPT FOR HOME HEALTH. FOR DISCHARGE, FAX DISCHARGE INFORMATION TO [facility] AT [phone]. Kolby Yang, CASE MANAGEMENT DCP- Discharge Planning Updated by [id number]: Kolby Yang on 06/19/19 4:[address] Patient Name: KARINA HODGES Encounter No: [id number] : 1945 Primary Insurance: MEDICARE A & B Anticipated DC Date: 06-20-2019 Planned Disposition: Home Health Service External Planned Provider: [facility] DCP follow-up note: CM RECEIVED OXYGEN TESTING AND HOME HEALTH ORDER. CM MET WITH PT IN ROOM AND DISCUSSED DISCHARGE PLANNING AND NEEDS. PT DOES NOT WANT TO GO TO INPATIENT REHAB, HE WANTS TO GO HOME. PT WOULD LIKE HOME HEALTH WITH [facility] HOME THAT IS WHO HE USED FOR HIS . CHOICE SIGNED. PT WOULD LIKE OXYGEN WITH [facility], THEY USE [facility] FOR HIS ALREADY. CHOICE SIGNED. IMPORTANT MESSAGE RFROM MEDICARE PROVIDED AND EXPLAINED. PT INFORMED CM THAT DR. FANG TOLD PT THAT HE CAN GO HOME TOMORROW, PT REPORTS HAVING A FRIEND TO PICK HIM UP TOMORROW. CM CALLED [facility], , SPOKE TO ANN WHO TOOK OXYGEN ORDER. CM FAXED OXYGEN ORDER TO [facility] AT [phone]. [facility] TO ARRANGE PORTABLE OXYGEN TO HOPITAL ROOM AND HOME OXYGEN AND NEBULIZER FOR HOME DELIVERY AFTER PT ARRIVES HOME TODAY. CM RECEIVED HOME HEALTH ORDER, CALLED [facility], , SPOKE TO ANSWERING SERVICE WHO ADVISED THE OFFICE CLOSED 13 MINUTES AGO; CM FAXED REFERRAL TO [facility] AT [phone]. CM TO FOLLOW UP WITH REFERRAL TO [facility] IN THE MORNING, 06-20-19, TO CONFIRM ACCEPTANCE. Kolby Yang, CASE MANAGEMENT DCP- Discharge Planning Updated by [email or web address]: Saskia Haas on 06/14/19 12:[address] LATE ENTRY 06/13/19 Patient Name: KARINA HODGES Admission Status: ER Accout number: [id number] Admission Date: 06-12-2019 : 1945 Admission Diagnosis:METABOLIC ENCEPHALOPATHY Attending: BRANDO ELIAS Current LOS: 1 Anticipated DC Date: Planned Disposition: Home Primary Insurance: MEDICARE A & B Discharge Planning Comments: CM met with patient at bedside after explaining CM role and obtaining verbal consent. Patient lives at home with his where he is independent with his care and plans to return there upon discharge. Patient feels this would be a safe discharge. CM discussed availability / needs of home health and medical equipment. Patient denies any discharge needs at this time. Patient states he will have his family drive him home upon discharge. CM will continue to follow and assist as needed with discharge planning / needs. Irrigationist: Saskia Haas DCPIA - Discharge Planning Initial Assessment Updated by [email or web address]: Saskia Haas on 06/14/19 1:21 pm * Is the patient Alert and Oriented? Yes * How many steps to enter\exit or inside your home? * PCP PULLIG * Pharmacy [facility] * Preadmission Environment Home with Family * ADLs Independent * Other Equipment W/C, WALKER, BSC, SC, CANE, NEBULIZER * List name and contact numbers for known caregivers / representatives who currently or will assist patient after discharge: DAJA HODGES - [facility] - [phone] OR [phone] * Verbal permission to speak to the caregivers and representatives has been obtained from the patient. Yes * Community resources currently utilized None * Additional services required to return to the preadmission environment? No * Can the patient safely return to the preadmission environment? Yes * Has this patient been hospitalized within the prior 30 days at any hospital? No Coverage Notice Reviewer: LYUDMILA Yang Notice Issued Date-Time: 06/19/2019 16:10 Notice Type: IM Discharge Notice Notice Delivered To: Patient Relationship to Patient: Card Cutter Helper Name: Delivery Method: HAND - Hand Delivered Jessica Days: Prior Verbal Notification: Recipient Understood Notice: Yes Recipient Signature: Yes Med Rec Note Co-signed by Attending: Coverage Notice Comment: Reviewer: LYUDMILA Yang Notice Issued Date-Time: 06/19/2019 16:10 Notice Type: Patient Choice Letter Notice Delivered To: Patient Relationship to Patient: Card Cutter Helper Name: Delivery Method: HAND - Hand Delivered Jessica Days: Prior Verbal Notification: Recipient Understood Notice: Yes Recipient Signature: Yes Med Rec Note Co-signed by Attending: Coverage Notice Comment: [facility] Last DP export: 06/20/19 8:22 am Patient Name: KARINA HODGES Page [phone] at 0826 All edits/amendments must be made on the electronic document DICTATION DATE: 06/21/19825 SUPERVISOR PAIRING AND INSPECTING: DM 06/21/19825 RPT#: [id number] DC DATE:06/20/19 STATUS: DIS IN [facility] [address] [place] [address] END OF REPORT
== END 2019-06-20 16:29 | disposition home health service (06) | DRG 70 ==
LOC: D.ER 11:39 → D.MS 13:47 → OBSVTIME 06-12 → D.ICU 06-12 12:43 → D.MS 06-12 12:43 → D.ICU 06-12 13:42 → D.M2 06-17 14:13
PROVIDERS: Family Medicine; Internal Medicine Cardiovascular Disease; ADMIT Internal Medicine Nephrology; ATTEND Internal Medicine Nephrology
PROC: 5A09357 Assistance with Respiratory Ventilation, Less than 24 Consecutive Hours, Continuous Positive Airway Pressure (ICD-10-PCS; 2019-06-12)
PROC: B2151ZZ Fluoroscopy of Left Heart using Low Osmolar Contrast (ICD-10-PCS; 2019-06-16)
PROC: 4A023N7 Measurement of Cardiac Sampling and Pressure, Left Heart, Percutaneous Approach (ICD-10-PCS; 2019-06-16)
PROC: B2181ZZ Fluoroscopy of Left Internal Mammary Bypass Graft using Low Osmolar Contrast (ICD-10-PCS; principal; 2019-06-16 13:00)
DX: G93.41 Metabolic encephalopathy (principal); J96.02 Acute respiratory failure with hypercapnia; J96.01 Acute respiratory failure with hypoxia; I50.23 Acute on chronic systolic (congestive) heart failure; J69.0 Pneumonitis due to inhalation of food and vomit; F17.203 Nicotine dependence unspecified, with withdrawal; J44.1 Chronic obstructive pulmonary disease with (acute) exacerbation; G45.9 Transient cerebral ischemic attack, unspecified; I25.10 Atherosclerotic heart disease of native coronary artery without angina pectoris; I11.0 Hypertensive heart disease with heart failure; D50.9 Iron deficiency anemia, unspecified

== ENCOUNTER 2019-09-03 10:56 | Inpatient (IN) | payer MEDICARE, BC ==
[2019-09-03] VITALS (9 sets, daily range): BP systolic 99–109; BP diastolic 59–71; BMI 22.8
[~2019-09-03] VITALS: Ht 172.7 cm; Wt 68.0 kg
[~2019-09-03 10:56] MED LIST changes: +IPRAT-ALBUT 0.5-3 ML INH; +Nicoderm [PBKC] TRANSDERM; +PREDNISONE10 MG PO; +SYMBICORT 16010.2 GM INH
[2019-09-03 13:43] LABS: BASOPHILS 0.2 % (0-2); EOSINOPHILS 1.1 % (0-7); HEMATOCRIT 40.3 % (42.0-54.0); HEMOGLOBIN 13.6 g/dL (13.5-17.5); IMMATURE GRANULOCYTES 0.1 % (0-5); LYMPHOCYTES 10.4 % (15-50); MCH 33.7 pg (26.0-34.0); MCHC 33.7 g/dL (31.0-37.0); MONOCYTES 5.5 % (2-11); NEUTROPHILS 82.7 % (40-80); RBC 4.03 10x6/uL (4.20-6.10); RDW 13.4 % (11.5-14.5)
[2019-09-03 13:44] LABS: CALC OSMOLALITY 281 mosm/kg (275-300); CALCIUM 9.6 mg/dL (8.5-10.1); CARBON DIOXIDE 26.3 mmol/L (21.0-32.0); CHLORIDE - SERUM 106 mmol/L (98-107); CREATININE - SERUM 0.9 mg/dL (0.6-1.3); GLUCOSE 110 mg/dL (74-106); SODIUM 140 mmol/L (136-145); UREA NITROGEN 19 mg/dL (7-18); eGFR NON AFRICAN AMERICAN 87 mL/min (90-120)
[2019-09-03 13:47] LABS: PLATELET COUNT 133 10x3/uL (130-400)
[2019-09-03 13:49] LABS: INR 1.03 (0.85-1.17); PROTIME 13.5 SECONDS (11.6-15.0)
[2019-09-03 13:50] LABS: APTT 32.9 SECONDS (22.8-39.4)
[2019-09-03 13:58] LABS: ALBUMIN 3.9 g/dL (3.4-5.0); ALKALINE PHOSPHATASE 84 U/L (30-120); ALT (SGPT) 16 U/L (10-68); BILIRUBIN - TOTAL 1.52 mg/dL (0.2-1.3); PROTEIN - SERUM 6.8 g/dL (6.4-8.2); TROPONIN-I < 0.017 ng/mL (0.000-0.060)
--- NOTE | 2019-09-03 16:03 | NUR ---
THROUGH TRAFFIC KEPT TO A MINIMUM. HIBACLENS AND ALCOHOL SCRUB APPLIED FIRST. STERILE GOWNED AND GLOVED PRIOR TO PREPPING WITH CHLORAPREP.
--- NOTE | 2019-09-03 19:55 | NUR ---
LYING IN BED. ALERT AND ORIENTED X4. GIVEN CLEAR LIQUIDS AND ALVIN WELL. RESP SHALLOW, NONLABORED. ENCOURAGED USE OF I.S. AND OBSERVED USING IT. O2 @ 2L/NC. DENIES PAIN. SCDS IN USE BILAT. TELEMETRY SHOWS ST WITH RATE OF 107. PEDAL PULSES WEAK BILAT. NONPROD COUGH. NS @ 50 MLHR INFUSING IN LT FOREARM. WILL WATCH FOR VOID. NIMA ALARM IN USE FOR PT SAFETY. CL IN REACH.
[2019-09-04] VITALS (7 sets, daily range): BP systolic 87–111; BP diastolic 54–66; BMI 22.8
--- NOTE | 2019-09-04 03:18 | NUR ---
HAS RESTED WELL THIS SHIFT. NO PAIN. NO DISTRESS. CL IN REACH.
[2019-09-04 04:48] LABS: BASOPHILS 0.3 % (0-2); EOSINOPHILS 0.3 % (0-7); IMMATURE GRANULOCYTES 0.4 % (0-5); LYMPHOCYTES 9.9 % (15-50); MCH 32.9 pg (26.0-34.0); MCHC 32.6 g/dL (31.0-37.0); MCV 100.7 fL (80.0-100.0); MEAN PLATELET VOLUME 9.3 fL (7.4-10.4); MONOCYTES 7.9 % (2-11); NEUTROPHILS 81.2 % (40-80); PLATELET COUNT 142 10x3/uL (130-400); RDW 13.6 % (11.5-14.5); WBC 7.6 10x3/uL (4.8-10.8)
[2019-09-04 04:56] LABS: HEMATOCRIT 28.8 % (42.0-54.0); HEMOGLOBIN 9.4 g/dL (13.5-17.5); RBC 2.86 10x6/uL (4.20-6.10)
[2019-09-04 05:04] LABS: ALBUMIN 2.8 g/dL (3.4-5.0); ALKALINE PHOSPHATASE 54 U/L (30-120); ALT (SGPT) 14 U/L (10-68); BILIRUBIN - TOTAL 1.03 mg/dL (0.2-1.3); CALC OSMOLALITY 278 mosm/kg (275-300); CALCIUM 8.3 mg/dL (8.5-10.1); CARBON DIOXIDE 26.2 mmol/L (21.0-32.0); CHLORIDE - SERUM 105 mmol/L (98-107); GLUCOSE 131 mg/dL (74-106); MAGNESIUM - SERUM 1.5 mg/dL (1.8-2.4); POTASSIUM - SERUM 4.6 mmol/L (3.5-5.1); PROTEIN - SERUM 5.2 g/dL (6.4-8.2); SODIUM 138 mmol/L (136-145); UREA NITROGEN 15 mg/dL (7-18); eGFR NON AFRICAN AMERICAN 77 mL/min (90-120)
--- NOTE | 2019-09-04 10:58 | NUR ---
FENTANYL 12 MCG REMOVED FROM LEFT CHEST. STATED GAVE IT TO HIM YESTERDAY FOR PAIN. ASSISTED TO BATHROOM. VOMITED IN TRASH CAN. ZOFRAN GIVEN. BLADDER SCAN AFTER VOIDING WAS 457 ML IN BLADDER. WILL NOTIFY FAVIAN.
[2019-09-04 11:51] LABS: BACTERIA FEW /hpf (NEGATIVE); BILIRUBIN NEGATIVE (NEGATIVE); EPITHELIAL CELL CAST OCC /lpf (NONE SEEN); EPITHELIAL CELLS 0-5 /hpf (0-5); GLUCOSE 50 mg/dL (NEGATIVE); GRANULAR CAST RARE /lpf (NONE SEEN); KETONE SMALL mg/dL (NEGATIVE); NITRITE NEGATIVE (NEGATIVE); RED CELLS - URINE 0-5 /hpf (0-5); SPECIFIC GRAVITY 1.025 (1.005-1.020); UROBILINOGEN NORMAL (NORMAL); WHITE CELLS - URINE 0-5 /hpf (NEGATIVE)
--- NOTE | 2019-09-04 12:22 | NUR ---
IN AND OUT CATH. STERILE TECHNIQUE MAINTAINED. TOLERATED WELL. ALMOST 500 ML OUT. BED ALARM ON CL IN REACH. WCTM
--- NOTE | 2019-09-04 13:55 | MORECARE ---
CASE MANAGEMENT DISCHARGE SUMMARY PATIENT: KARINA HODGES UNIT: [id number] ADM DATE: 09/03/19 AGE: 74 : 44 SEX: M ROOM/BED: D.2207 AUTHOR: MISTY BOATENG PHYSICIAN: REFERRING PHYSICIAN: JEWELL BALLESTEROS DO DATE OF SERVICE: 09/04/19 Discharge Plan Patient Name: KARINA HODGES [facility] [facility] 1945 Planned Disposition: Home with Home Health Anticipated Discharge Date: Discharge Date: Expected LOS: Initial Reviewer: [email or web address] Initial Review Date: 09/03/2019 Generated: 09/04/19 2:55 pm DCPIA - Discharge Planning Initial Assessment Updated by [email or web address]: Elsy Tyler on 09/04/19 1:49 pm * Is the patient Alert and Oriented? Yes * How many steps to enter\exit or inside your home? * PCP CELI * Pharmacy [facility] * Preadmission Environment Home with Family * ADLs Independent * Equipment Bedside Commode Cane Nebulizer Other Oxygen Rolling Walker * Other Equipment CONCENTRATOR * List name and contact numbers for known caregivers / representatives who currently or will assist patient after discharge: DAJA HODGES () [phone] * Verbal permission to speak to the caregivers and representatives has been obtained from the patient. N/A * Community resources currently utilized None * Additional services required to return to the preadmission environment? Yes * Can the patient safely return to the preadmission environment? Yes * Has this patient been hospitalized within the prior 30 days at any hospital? No Patient Name: KARINA HODGES Page [phone] at 1355 All edits/amendments must be made on the electronic document DICTATION DATE: 09/04/19 1355 LOADING MACHINE OPERATOR HELPER: KIERSTEN 09/04/19 1355 RPT#: [id number] DC DATE: STATUS: ADM IN [facility] [address] [place] [address] END OF REPORT
--- NOTE | 2019-09-04 14:05 | MORECARE ---
CASE MANAGEMENT DISCHARGE SUMMARY PATIENT: KARINA HODGES UNIT: [id number] ADM DATE: 09/03/19 AGE: 74 : 43 SEX: M ROOM/BED: D.2207 AUTHOR: TASNEEM,DOC PHYSICIAN: REFERRING PHYSICIAN: JEWELL BALLESTEROS DO DATE OF SERVICE: 09/04/19 Discharge Plan Patient Name: KARINA HODGES Facility: [facility]:[place] : 1945 Planned Disposition: Home with Home Health Anticipated Discharge Date: Discharge Date: Expected LOS: Initial Reviewer: [email or web address] Initial Review Date: 09/03/2019 Generated: 09/04/19 3:04 pm Comments DCP- Discharge Planning Updated by [id number]: Elsy Tyler on 09/04/19 12:[address] Patient Name: KARINA HODGES Admission Status: ER Accout number: [id number] Admission Date: 09-03-2019 : 1945 Admission Diagnosis: Attending: JEWELL BALLESTEROS Current LOS: 1 Anticipated DC Date: Planned Disposition: Home with Home Health Primary Insurance: MEDICARE A & B Discharge Planning Comments: CM met with patient to complete initial dc planning assessment. CM educated patient on the CM role and verbal consent given by patient to complete assessment. Patient lives at home with his spouse where he is independent with his care. At discharge patient plans to return home and feels this is a safe discharge. CM discussed availability of home health, rehab services, and medical equipment. He will discharge home with home health, MYKEL with [facility]. He stated that he has a walker and cane. He has a BSC, but his uses it. He also has home o2, nebulizer, concentrator, and portable all from [facility]. Patient states his friend will be his drive away driver home. I will fax over clinicals to [facility]. Patient denied known discharge needs at this time. CM will continue to follow and will assist as needed with dc plans/needs. Addiction Therapist: Elsy Tyler DCPIA - Discharge Planning Initial Assessment Updated by [id number]: Elsy Tyler on 09/04/19 1:49 pm * Is the patient Alert and Oriented? Yes * How many steps to enter\exit or inside your home? * PCP PULLIG * Pharmacy [facility] * Preadmission Environment Home with Family * ADLs Independent * Equipment Bedside Commode Cane Nebulizer Other Oxygen Rolling Walker * Other Equipment CONCENTRATOR * List name and contact numbers for known caregivers / representatives who currently or will assist patient after discharge: DAJA HODGES () [phone] * Verbal permission to speak to the caregivers and representatives has been obtained from the patient. N/A * Community resources currently utilized None * Additional services required to return to the preadmission environment? Yes * Can the patient safely return to the preadmission environment? Yes * Has this patient been hospitalized within the prior 30 days at any hospital? No External Providers External Provider: [facility] Next Contact Date: Service Request Date: Service Type: Resolution: Reviewer: Comments: Coverage Notice Reviewer: [email or web address] Ethan Tyler Notice Issued Date-Time: 09/04/2019 13:00 Notice Type: Patient Choice Letter Notice Delivered To: Patient Relationship to Patient: Renewable Energy Broker Name: Delivery Method: HAND - Hand Delivered Jessica Days: Prior Verbal Notification: Recipient Understood Notice: Yes Recipient Signature: Yes Med Rec Note Co-signed by Attending: Coverage Notice Comment: MYKEL WITH [facility] Last DP export: 09/04/19 12:55 p Patient Name: KARINA HODGES Page [id number] at 1405 All edits/amendments must be made on the electronic document DICTATION DATE: 09/04/191403 CORN DETASSELER MACHINE OPERATOR: KIERSTEN 09/04/19 1404 RPT#: [id number] DC DATE: STATUS: ADM IN [facility] [address] [place] [address] END OF REPORT
[2019-09-05] VITALS (10 sets, daily range): BP systolic 79–102; BP diastolic 37–62; Ht 172.7 cm; Wt 68.0 kg
[2019-09-05 04:27] LABS: MCH 33.3 pg (26.0-34.0); MCHC 33.3 g/dL (31.0-37.0); RDW 13.5 % (11.5-14.5); WBC 6.8 10x3/uL (4.8-10.8)
[2019-09-05 05:10] LABS: RBC 2.22 10x6/uL (4.20-6.10)
[2019-09-05 05:11] LABS: HEMATOCRIT 22.2 % (42.0-54.0); HEMOGLOBIN 7.4 g/dL (13.5-17.5)
--- NOTE | 2019-09-05 06:03 | NUR ---
CRITICAL HGB OF 7.4. TRIED TO PAGE DOCTOR TWICE. WILL CONTINUE TO TRY TO NOTIFY DOCTOR.
--- NOTE | 2019-09-05 07:06 | OP ---
PATIENT NAME: KARINA HODGES MEDICAL RECORD: [id number] :43 LOCATION:[facility] ADMISSION DATE:09/03/19 SURGEON: ELICEO BALLESTEROS DO DATE OF OPERATION: 09/03/2019 PROCEDURE PERFORMED: Right total hip arthroplasty. PREOPERATIVE DIAGNOSIS: Right femoral neck fracture. POSTOPERATIVE DIAGNOSIS: Right femoral neck fracture. INDICATIONS: Mr. Hodges is a 74-year-old male who fell on Wednesday under his right hip, he could not bear weight since Wednesday actually finally came to the ER, he got x-rays done, which does not show anything acutely, but due to his pain they ordered a CT and did show acute fracture of the femoral neck, which was nondisplaced. I had a long discussion with him about what to do. 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 I asked him if he wanted to we could do nothing due to the fact it was nondisplaced, but he be nonweightbearing for at least 6 weeks and be a high risk for collapsing and avascular necrosis. He already has peripheral vascular disease and has had several stents. Two, we could do 3 cannulated screws and even though the fracture is right at the subcapital region of the femoral neck, might be able to hold it, but there was an incidence of collapse with that as well. I informed him the other option will be a total hip that he can get up and walk on it right away, but it would be more painful, increase risk for infection, bleeding, damage to nerves and vessels, fracture, anterolateral thigh numbness, continued pain, loosening of the hardware and hardware complications, need for further surgery, knowing all that he decided to do the right total hip due to the fact that he get up right away and be quicker to recovery and he also was aware of the risk of blood clots and even . He signed the consent. SURGEON: Eliceo Ballesteros DO DESCRIPTION OF PROCEDURE: The patient was taken to the operative suite, laid in supine position, given general anesthetic and intubated. He was given a gram of Ancef preoperatively. He was then positioned on the [place] table. The right lower extremity and right hip was prepped and draped in sterile fashion. A timeout was performed; everyone was in agreement with the correct side, site, patient and procedure. We then began by cutting down to the tensor fascia octavio muscle belly taken to fascia anterior and the muscle belly posteriorly and then opening up the rectus interval medially and the tensor fascia octavio laterally. We then went down to the ascending branch of lateral femoral circumflex artery, dissected it out, tied it off and coagulated with Aquamantys and then cut it. We then put Hohmann around the neck of the femur, and as soon as I opened up the capsule, gush of blood came out indicating this was a fresh fracture and then I tagged the capsule and put the Hohmann around the neck and cut the neck. The head was then removed as well as the neck as it broke apart when removing it. We got the head out too. I then put the Charnley in and removed the labrum and the pulvinar, coagulated any bleeding with the Aquamantys. We then started reaming first medializing and then up to a 52 cup impacted a 52 G7 cup and then put the shell in and packed it into place and checked it to be sure that it was in good position and locked down, it was, and the cup was also tight. I then exposed the femur and used the canal finder Voxxter cutter and then with the #4 broach, broached up to a 14; 14 fit well and then we trialed the -6 neck. Once OPERATIVE REPORT [id number] KARINA HODGES we get that trialled as equal lengths of the left side we decided to that for the final. We then dislocated the hip and then removed the trials, irrigated and then put in the actual implant 14 Taperloc micro high offset stem was impacted into place at the dual mobility head with a -6 neck. We then reduced the hip and then irrigated with 10% povidone-iodine with 500 mL of normal saline. X-ray was then taken to ensure there were no fractures in the femur or around the pelvis and leg lengths were equal. We got an AP femur and AP pelvis. Once that was completed and the povidone-iodine solution with 500 mL normal saline was irrigated out with more than a liter of normal saline, we then closed the tensor fascia octavio with #1 Vicryl, after putting Yary, vancomycin-tobramycin powder in the hip and then closed first with a wwuftf-om-lzai running locking stitch in tensor fascia octaivo fascia. The skin was then closed by Oz Perry, certified surgical medical assistant secretary and he closed with 2-0 Vicryl in inverted interrupted fashion, 4-0 Monocryl on the skin and Prineo glue on the skin. He was then dressed with Telfa and Tegaderm. Awakened and taken to recovery in stable condition. Blood loss approximately 300 mL. COMPLICATIONS: None. TRANSINT:[id number] Voice Confirmation ID: [id number] DOCUMENT ID: [id number] ELICEO BALLESTEROS DO at 0706 CC: [id number] DICTATION DATE: 09/03/19 1716 STATION WORKER: 09/04/19 0202 ADM IN [facility] [address] [place] [address]
--- NOTE | 2019-09-05 13:00 | NUR ---
PATIENT MOANING AND GESTURING AT ME TO COME TO HIS ROOM. PATIENT WAS SHIVERING AT THIS TIME. PATIENT DID NOT HAVE A TEMP. IT WAS 98.9. I GOT HIM 2 BLANKETS FROM THE WARMER TO WARM HIM UP. PATIENT DESATED TO 72 ON THE PULSE OX. I PUT OXYGEN ON. HE WAS AT 2 L. RESP THERAPIST CAME IN TO GIVE HIM A TREATMENT. WASN'T ABLE TO. HR JUMPED UP TO 150S. BLOOD WAS PAUSED. PATIENT HYPERVENTILATING. CALLED DR BALLESTEROS. HE TOLD ME TO CONSULT DR ELIAS. NOTIFIED DR ELIAS. HE CAME OVER AND ASSESSED THE PATIENT HIMSELF. STAT CTA. SHOWED NO BLOOD CLOT IN LUNGS. PATIENT GOT VERY CONFUSED. TOLD ME TO RESTART THE BLOOD AND GO AT A SLOWER RATE. RESTARTED AT 75 ML. PATIENT BED ALARM ON. CL IN REACH.
--- NOTE | 2019-09-05 13:45 | NUR ---
NOTIFIED MCKENNA CHIRINOS WITH DR ELIAS PATIENT SPIKED TEMP OF 102.6. STOPPED BLOOD. RECIEVED TYLENOL AND GAVE TYLENOL PER EMAR. CL IN REACH. BED ALARM ON
--- NOTE | 2019-09-05 16:30 | NUR ---
SPOKE WITH DR ELIAS. TOLD ME TO PRE MED PATIENT AND GIVE THE NEXT UNIT OF BLOOD.
--- NOTE | 2019-09-05 17:26 | NUR ---
PRE-MED PATIENT. UNDER OBSERVATION AT THIS TIME. TM
--- NOTE | 2019-09-05 20:04 | NUR ---
REC'D. CHGE. OF SHIFT WALKING ROUNDS.IN BED HOB ELEVATED. ALERT SOMEWHAT CONFUSED TO PERSON TIME AND SITUATION.NIMA MAT ON FOR SAFETY.BLOOD CONTINUES TO INFUSE AT 75CC/HR ALVIN WELL WITH NO MORE SIGNS OF TRANSFUSION REACTION.DRSG DRY AND INTACT TO RIGHT HIP.FOOT WARM PEDAL PULSE PRESENT.WIGGLES TOES ON COMMAND. WILL CONTINUE TO MONITOR FOR ANY CHGES. IN NEUROVASCULAR STATUS AND FOLLOW CURRENT PLAN OF CARE.BED ARMED
[2019-09-06 06:13] LABS: BASOPHILS 0.3 % (0-2); EOSINOPHILS 1.8 % (0-7); HEMATOCRIT 22.2 % (42.0-54.0); IMMATURE GRANULOCYTES 0.5 % (0-5); LYMPHOCYTES 14.2 % (15-50); MCH 31.6 pg (26.0-34.0); MCHC 32.9 g/dL (31.0-37.0); MEAN PLATELET VOLUME 9.2 fL (7.4-10.4); MONOCYTES 7.8 % (2-11); NEUTROPHILS 75.4 % (40-80); PLATELET COUNT 134 10x3/uL (130-400); RBC 2.31 10x6/uL (4.20-6.10); RDW 15.9 % (11.5-14.5); WBC 6.1 10x3/uL (4.8-10.8)
[2019-09-06 06:29] LABS: HEMOGLOBIN 7.3 g/dL (13.5-17.5); MCV 96.1 fL (80.0-100.0)
[2019-09-06 06:32] LABS: CALC OSMOLALITY 278 mosm/kg (275-300); CALCIUM 8.8 mg/dL (8.5-10.1); CARBON DIOXIDE 25.1 mmol/L (21.0-32.0); CHLORIDE - SERUM 107 mmol/L (98-107); GLUCOSE 101 mg/dL (74-106); SODIUM 138 mmol/L (136-145); UREA NITROGEN 22 mg/dL (7-18); eGFR NON AFRICAN AMERICAN 77 mL/min (90-120)
[2019-09-06 08:34] VITALS: BP 100/59
[2019-09-06 09:34] LABS: HEMATOCRIT 23.1 % (42.0-54.0); HEMOGLOBIN 7.7 g/dL (13.5-17.5)
--- NOTE | 2019-09-06 10:19 | NUR ---
UP IN CHAIR, NO DISTRESS NOTED, IV RESTARTED, H&H LOW, CONT TO MONITOR LABS AND CONFUSION, WALKED WITH PT
[2019-09-06 12:59] VITALS: BP 105/53
[2019-09-06 16:55] VITALS: BP 94/46
[2019-09-06 20:00] VITALS: BP 95/53
[2019-09-07] VITALS: BP 105/63
[2019-09-07 04:00] VITALS: BP 100/61
[2019-09-07 06:10] LABS: ANION GAP 10.9 mmol/L (8-16); CALCIUM 8.8 mg/dL (8.5-10.1); CARBON DIOXIDE 25.9 mmol/L (21.0-32.0); CREATININE - SERUM 1.1 mg/dL (0.6-1.3); POTASSIUM - SERUM 3.8 mmol/L (3.5-5.1)
[2019-09-07 06:31] LABS: BASOPHILS 0.2 % (0-2); HEMATOCRIT 22.9 % (42.0-54.0); IMMATURE GRANULOCYTES 0.5 % (0-5); LYMPHOCYTES 15.4 % (15-50); MCH 31.9 pg (26.0-34.0); MCHC 32.8 g/dL (31.0-37.0); MCV 97.4 fL (80.0-100.0); MEAN PLATELET VOLUME 9.2 fL (7.4-10.4); MONOCYTES 8.5 % (2-11); NEUTROPHILS 71.4 % (40-80); RBC 2.35 10x6/uL (4.20-6.10); RDW 15.6 % (11.5-14.5); WBC 5.8 10x3/uL (4.8-10.8)
[2019-09-07 06:43] LABS: HEMOGLOBIN 7.5 g/dL (13.5-17.5); PLATELET COUNT 164 10x3/uL (130-400)
[2019-09-07] MEDS ORDERED: ELIQUIS2.5 MG PO (08:05)
[2019-09-07] MEDS ORDERED: KEFLEX500 MG PO (08:05)
[2019-09-07] MEDS ORDERED: HYDROCODON-ACE1 EA10 PO (08:05)
[2019-09-07 08:30] VITALS: BP 101/62
--- NOTE | 2019-09-07 08:53 | NUR ---
HE IS AWAKE, TALKING. HIS RIGHT HIP HAS A DRESSING C/D/I, THERE IS BRUISING TO THAT HIP. HE DENIES ANY PAIN, "JUST WHEN I WALK ON IT". THE CALL [facility] IS WITHIN REACH.
[2019-09-07 12:25] VITALS: BP 96/59
[2019-09-07 16:45] VITALS: BP 99/64
[2019-09-07 20:00] VITALS: BP 101/63
[2019-09-08] VITALS: BP 93/59
[2019-09-08 04:00] VITALS: BP 93/58
[2019-09-08 06:20] LABS: BASOPHILS 0.6 % (0-2); EOSINOPHILS 4.2 % (0-7); HEMATOCRIT 23.4 % (42.0-54.0); HEMOGLOBIN 7.7 g/dL (13.5-17.5); IMMATURE GRANULOCYTES 0.6 % (0-5); LYMPHOCYTES 19.5 % (15-50); MCH 32.5 pg (26.0-34.0); MCHC 32.9 g/dL (31.0-37.0); MCV 98.7 fL (80.0-100.0); NEUTROPHILS 67.1 % (40-80); RBC 2.37 10x6/uL (4.20-6.10)
[2019-09-08 06:21] LABS: PLATELET COUNT 210 10x3/uL (130-400)
[2019-09-08 06:40] LABS: ANION GAP 10.2 mmol/L (8-16); CALCIUM 8.5 mg/dL (8.5-10.1); CARBON DIOXIDE 26.7 mmol/L (21.0-32.0); CREATININE - SERUM 1.2 mg/dL (0.6-1.3); POTASSIUM - SERUM 3.9 mmol/L (3.5-5.1)
[2019-09-08 08:26] VITALS: BP 94/57
--- NOTE | 2019-09-08 08:54 | NUR ---
HE IS GETTING DEPRESSED, WAITING FOR THE DOCTORS TO LET HIM KNOW WHAT THE PLAN IS NEXT. HE IS WORRIED ABOUT HIS AT HOME. HE WALKED TO THE BATHROOM WITH A WALKER. THE CALL [facility] IS WITHIN REACH. DENIES THE NEED FOR ANY PAIN MEDS.
--- NOTE | 2019-09-08 10:11 | NUR ---
Nutrition follow-up: Diet: Regular PO intake ~60% of meals post-op Labs reviewed Wt: 150# PO intake fair at this time Will encourage increased po intake RDN following.
--- NOTE | 2019-09-08 12:20 | MORECARE ---
CASE MANAGEMENT DISCHARGE SUMMARY PATIENT: KARINA HODGES UNIT: [id number] ADM DATE: 09/03/19 AGE: 74 : 44 SEX: M ROOM/BED: D.2207 AUTHOR: TASNEEM,DOC PHYSICIAN: REFERRING PHYSICIAN: JEWELL BALLESTEROS DO DATE OF SERVICE: 09/08/19 Discharge Plan Patient Name: KARINA HODGES Facility: [facility]:[place] : 1945 Planned Disposition: Home with Home Health Anticipated Discharge Date: Discharge Date: Expected LOS: Initial Reviewer: [email or web address] Initial Review Date: 09/03/2019 Generated: 09/08/19 1:19 pm Comments DCP- Discharge Planning Updated by [email or web address]: Elsy Tyler on 09/08/19 11:[address] Patient will be discharging home with [facility] today, his friend will be driving him home. IMM served and explained. CM to follow and assist as needed DCP- Discharge Planning Updated by [email or web address]: Elsy Tyler on 09/04/19 12:[address] Patient Name: KARINA HODGES Admission Status: ER Accout number: [id number] Admission Date: 09-03-2019 : 1945 Admission Diagnosis: Attending: JEWELL BALLESTEROS Current LOS: 1 Anticipated DC Date: Planned Disposition: Home with Home Health Primary Insurance: MEDICARE A & B Discharge Planning Comments: CM met with patient to complete initial dc planning assessment. CM educated patient on the CM role and verbal consent given by patient to complete assessment. Patient lives at home with his spouse where he is independent with his care. At discharge patient plans to return home and feels this is a safe discharge. CM discussed availability of home health, rehab services, and medical equipment. He will discharge home with home health, MYKEL with [facility]. He stated that he has a walker and cane. He has a BSC, but his uses it. He also has home o2, nebulizer, concentrator, and portable all from [facility]. Patient states his friend will be his bulk tank driver home. I will fax over clinicals to [facility]. Patient denied known discharge needs at this time. CM will continue to follow and will assist as needed with dc plans/needs. Hone Operator: Elsy Tyler DCPIA - Discharge Planning Initial Assessment Updated by [id number]: Elsy Tyler on 09/04/19 1:49 pm * Is the patient Alert and Oriented? Yes * How many steps to enter\exit or inside your home? * PCP P[facility] * Pharmacy [facility] * Preadmission Environment Home with Family * ADLs Independent * Equipment Bedside Commode Cane Nebulizer Other Oxygen Rolling Walker * Other Equipment CONCENTRATOR * List name and contact numbers for known caregivers / representatives who currently or will assist patient after discharge: DAJA HODGES () [phone] * Verbal permission to speak to the caregivers and representatives has been obtained from the patient. N/A * Community resources currently utilized None * Additional services required to return to the preadmission environment? Yes * Can the patient safely return to the preadmission environment? Yes * Has this patient been hospitalized within the prior 30 days at any hospital? No Coverage Notice Reviewer: [id number] Ethan Tyler Notice Issued Date-Time: 09/04/2019 13:00 Notice Type: Patient Choice Letter Notice Delivered To: Patient Relationship to Patient: Guidance Counselor Name: Delivery Method: HAND - Hand Delivered Jessica Days: Prior Verbal Notification: Recipient Understood Notice: Yes Recipient Signature: Yes Med Rec Note Co-signed by Attending: Coverage Notice Comment: [facility]EL WITH [facility] Reviewer: [id number] Ethan Tyler Notice Issued Date-Time: 09/08/2019 12:10 Notice Type: IM Discharge Notice Notice Delivered To: Patient Relationship to Patient: Guidance Counselor Name: Delivery Method: HAND - Hand Delivered Jessica Days: Prior Verbal Notification: Recipient Understood Notice: Yes Recipient Signature: Yes Med Rec Note Co-signed by Attending: Coverage Notice Comment: Last DP export: 09/04/19 1:05 p Patient Name: KARINA HODGES Page [id number] at 1220 All edits/amendments must be made on the electronic document DICTATION DATE: 09/08/191218 BSA OFFICER: KIERSTEN 09/08/19 1219 RPT#: [id number] DC DATE: STATUS: ADM IN [facility] [address] [id number] END OF REPORT
--- NOTE | 2019-09-08 12:27 | MORECARE ---
CASE MANAGEMENT DISCHARGE SUMMARY PATIENT: KARINA HODGES UNIT: [id number] ADM DATE: 09/03/19 AGE: 74 : 43 SEX: M ROOM/BED: D.2207 AUTHOR: TASNEEMDOC PHYSICIAN: REFERRING PHYSICIAN: JEWELL BALLESTEROS DO DATE OF SERVICE: 09/08/19 Discharge Plan Patient Name: KARINA HODGES Facility: [facility]:[place] : 1945 Planned Disposition: Home with Home Health Anticipated Discharge Date: Discharge Date: Expected LOS: Initial Reviewer: [id number] Initial Review Date: 09/03/2019 Generated: 09/08/19 1:27 pm Comments DCP- Discharge Planning Updated by [email or web address]: Elsy Tyler on 09/08/19 11:[address] I CALLED SARAI AT [facility] TO LET HER KNOW ABOUT DC DCP- Discharge Planning Updated by [email or web address]: Elsy Tyler on 09/08/19 11:[address] Patient will be discharging home with [facility] today, his friend will be driving him home. IMM served and explained. CM to follow and assist as needed DCP- Discharge Planning Updated by [email or web address]: Elsy Tyler on 09/04/19 12:[address] Patient Name: KARINA HODGES Admission Status: ER Accout number: [id number] Admission Date: 09-03-2019 : 1945 Admission Diagnosis: Attending: JEWELL BALLESTEROS Current LOS: 1 Anticipated DC Date: Planned Disposition: Home with Home Health Primary Insurance: MEDICARE A & B Discharge Planning Comments: CM met with patient to complete initial dc planning assessment. CM educated patient on the CM role and verbal consent given by patient to complete assessment. Patient lives at home with his spouse where he is independent with his care. At discharge patient plans to return home and feels this is a safe discharge. CM discussed availability of home health, rehab services, and medical equipment. He will discharge home with home health, [facility]KEL with [facility]. He stated that he has a walker and cane. He has a BSC, but his uses it. He also has home o2, nebulizer, concentrator, and portable all from [facility]. Patient states his friend will be his bung driver home. I will fax over clinicals to [facility]. Patient denied known discharge needs at this time. CM will continue to follow and will assist as needed with dc plans/needs. Clerk Supervisor: Elsy Tyler DCPIA - Discharge Planning Initial Assessment Updated by [id number]: Elsy Tyler on 09/04/19 1:49 pm * Is the patient Alert and Oriented? Yes * How many steps to enter\exit or inside your home? * PCP [facility] * Pharmacy [facility] * Preadmission Environment Home with Family * ADLs Independent * Equipment Bedside Commode Cane Nebulizer Other Oxygen Rolling Walker * Other Equipment CONCENTRATOR * List name and contact numbers for known caregivers / representatives who currently or will assist patient after discharge: DAJA HODGES () [phone] * Verbal permission to speak to the caregivers and representatives has been obtained from the patient. N/A * Community resources currently utilized None * Additional services required to return to the preadmission environment? Yes * Can the patient safely return to the preadmission environment? Yes * Has this patient been hospitalized within the prior 30 days at any hospital? No Coverage Notice Reviewer: [id number] Ethan Tyler Notice Issued Date-Time: 09/04/2019 13:00 Notice Type: Patient Choice Letter Notice Delivered To: Patient Relationship to Patient: Audit Officer Name: Delivery Method: HAND - Hand Delivered Jessica Days: Prior Verbal Notification: Recipient Understood Notice: Yes Recipient Signature: Yes Med Rec Note Co-signed by Attending: Coverage Notice Comment: MYKEL WITH [facility] Reviewer: [id number] Ethna Tyler Notice Issued Date-Time: 09/08/2019 12:10 Notice Type: IM Discharge Notice Notice Delivered To: Patient Relationship to Patient: Audit Officer Name: Delivery Method: HAND - Hand Delivered Jessica Days: Prior Verbal Notification: Recipient Understood Notice: Yes Recipient Signature: Yes Med Rec Note Co-signed by Attending: Coverage Notice Comment: Last DP export: 09/08/19 11:20 a Patient Name: KARINA HODGES Page 46838 at 1227 All edits/amendments must be made on the electronic document DICTATION DATE: 09/08/19 1229 EXERCISE SCIENCE INSTRUCTOR: KIERSTEN 09/08/19 122 RPT#: [id number] DC DATE: STATUS: ADM IN [facility] [address] [facility] [place] [address] END OF REPORT
--- NOTE | 2019-09-08 16:39 | NUR ---
CHANGED THE DRESSING TO HIS RIGHT HIP. HIS IV IS OUT. HE WAS TAKEN TO THE FRONT DOOR VIA A WHEELCHAIR.
--- NOTE | 2019-09-09 09:49 | MORECARE ---
CASE MANAGEMENT DISCHARGE SUMMARY PATIENT: KARINA HODGES UNIT: [id number] ADM DATE: 09/03/19 AGE: 74 : 44 SEX: M ROOM/BED: D.2207 AUTHOR: TASNEEM,DOC PHYSICIAN: REFERRING PHYSICIAN: MAGEN TRUJILLO DO DATE OF SERVICE: 09/09/19 Discharge Plan Patient Name: KARINA HODGES Facility: [facility]:[place] : 1945 Planned Disposition: Home with Home Health Anticipated Discharge Date: Discharge Date: 09/08/2019 Expected LOS: Initial Reviewer: [email or web address] Initial Review Date: 09/03/2019 Generated: 09/09/19 10:48 am Comments DCP- Discharge Planning Updated by [email or web address]: Elsy Tyler on 09/08/19 11:[address] I CALLED SARAI AT [facility] TO LET HER KNOW ABOUT DC DCP- Discharge Planning Updated by [email or web address]: Elsy Tyelr on 09/08/19 11:[address] Patient will be discharging home with [facility] today, his friend will be driving him home. IMM served and explained. CM to follow and assist as needed DCP- Discharge Planning Updated by [email or web address]: Elsy Tyler on 09/04/19 12:[address] Patient Name: KARINA HODGES Admission Status: ER Accout number: [id number] Admission Date: 09-03-2019 : 1945 Admission Diagnosis: Attending: JEWELL BALLESTEROS Current LOS: 1 Anticipated DC Date: Planned Disposition: Home with Home Health Primary Insurance: MEDICARE A & B Discharge Planning Comments: CM met with patient to complete initial dc planning assessment. CM educated patient on the CM role and verbal consent given by patient to complete assessment. Patient lives at home with his spouse where he is independent with his care. At discharge patient plans to return home and feels this is a safe discharge. CM discussed availability of home health, rehab services, and medical equipment. He will discharge home with home health, MYKEL with [facility]. He stated that he has a walker and cane. He has a BSC, but his uses it. He also has home o2, nebulizer, concentrator, and portable all from [employer]. Patient states his friend will be his electric truck driver home. I will fax over clinicals to [facility]. Patient denied known discharge needs at this time. CM will continue to follow and will assist as needed with dc plans/needs. Info Print Press Operator: Elsy Tyler DCPIA - Discharge Planning Initial Assessment Updated by [email or web address]: Elsy Tyler on 09/04/19 1:49 pm * Is the patient Alert and Oriented? Yes * How many steps to enter\exit or inside your home? * PCP [facility] * Pharmacy [facility] [place] * Preadmission Environment Home with Family * ADLs Independent * Equipment Bedside Commode Cane Nebulizer Other Oxygen Rolling Walker * Other Equipment CONCENTRATOR * List name and contact numbers for known caregivers / representatives who currently or will assist patient after discharge: DAJA HODGES () [phone] * Verbal permission to speak to the caregivers and representatives has been obtained from the patient. N/A * Community resources currently utilized None * Additional services required to return to the preadmission environment? Yes * Can the patient safely return to the preadmission environment? Yes * Has this patient been hospitalized within the prior 30 days at any hospital? No Coverage Notice Reviewer: [id number] Ethan Tyler Notice Issued Date-Time: 09/04/2019 13:00 Notice Type: Patient Choice Letter Notice Delivered To: Patient Relationship to Patient: Police Dispatcher Name: Delivery Method: HAND - Hand Delivered Jessica Days: Prior Verbal Notification: Recipient Understood Notice: Yes Recipient Signature: Yes Med Rec Note Co-signed by Attending: Coverage Notice Comment: MYKEL WITH [facility] Reviewer: [id number] Ethan Tyler Notice Issued Date-Time: 09/08/2019 12:10 Notice Type: IM Discharge Notice Notice Delivered To: Patient Relationship to Patient: Police Dispatcher Name: Delivery Method: HAND - Hand Delivered Jessica Days: Prior Verbal Notification: Recipient Understood Notice: Yes Recipient Signature: Yes Med Rec Note Co-signed by Attending: Coverage Notice Comment: Last DP export: 09/08/19 11:27 a Patient Name: KARINA HODGES Page [phone] at 0949 All edits/amendments must be made on the electronic document DICTATION DATE: 09/09/19947 CRUCIBLE PACKER: KIERSTEN 09/09/19947 RPT#: [id number] DC DATE:09/08/19 STATUS: DIS IN [facility] [address] [place] [address] END OF REPORT
== END 2019-09-08 16:41 | disposition home health service (06) | DRG 470 ==
LOC: D.ER 10:56 → D.MS 14:30
PROVIDERS: Family Medicine; Internal Medicine Nephrology; Orthopaedic Surgery; ADMIT Family Medicine; ATTEND Family Medicine
PROC: 0SR90JZ Replacement of Right Hip Joint with Synthetic Substitute, Open Approach (ICD-10-PCS; principal; 2019-09-03 14:58)
DX: S72.001A Fracture of unspecified part of neck of right femur, initial encounter for closed fracture (principal); D62 Acute posthemorrhagic anemia; W19.XXXA Unspecified fall, initial encounter; I10 Essential (primary) hypertension; Z87.891 Personal history of nicotine dependence; Z86.73 Personal history of transient ischemic attack (TIA), and cerebral infarction without residual deficits

== ENCOUNTER 2019-11-30 12:17 | Inpatient (IN) | payer MEDICARE, OTHER ==
[~2019-11-30 12:17] MED LIST changes: +ELIQUIS2.5 MG PO; +HYDROCODON-ACE1 EA10 PO; +KEFLEX500 MG PO
[2019-11-30 14:16] LABS: BASOPHILS 0.6 % (0-2); EOSINOPHILS 6.3 % (0-7); HEMATOCRIT 30.6 % (42.0-54.0); HEMOGLOBIN 10.3 g/dL (13.5-17.5); IMMATURE GRANULOCYTES 0.5 % (0-5); MCH 31.9 pg (26.0-34.0); MCHC 33.7 g/dL (31.0-37.0); MCV 94.7 fL (80.0-100.0); MEAN PLATELET VOLUME 8.7 fL (7.4-10.4); MONOCYTES 7.2 % (2-11); NEUTROPHILS 75.4 % (40-80); RBC 3.23 10x6/uL (4.20-6.10); RDW 13.2 % (11.5-14.5); WBC 8.1 10x3/uL (4.8-10.8)
[2019-11-30 14:19] LABS: ANION GAP 10.3 mmol/L (8-16); CALCIUM 10.2 mg/dL (8.5-10.1); CARBON DIOXIDE 29.8 mmol/L (21.0-32.0); CREATININE - SERUM 1.1 mg/dL (0.6-1.3); PLATELET COUNT 336 10x3/uL (130-400); POTASSIUM - SERUM 4.1 mmol/L (3.5-5.1)
[2019-11-30 14:25] LABS: ALBUMIN 3.5 g/dL (3.4-5.0); BILIRUBIN - TOTAL 2.49 mg/dL (0.2-1.3); PROTEIN - SERUM 7.1 g/dL (6.4-8.2)
[2019-11-30 15:06] LABS: PRO BNP 1015 pg/mL (0-450); THYROID STIMULATING HORMONE 0.51 uIU/mL (0.36-3.74); TROPONIN-I < 0.017 ng/mL (0.000-0.060)
[2019-11-30 16:29] LABS: APTT 34.2 SECONDS (22.8-39.4); INR 1.14 (0.85-1.17); PROTIME 14.6 SECONDS (11.6-15.0)
[2019-11-30 18:03] LABS: BILIRUBIN NEGATIVE (NEGATIVE); GLUCOSE NEGATIVE (NEGATIVE); KETONE NEGATIVE (NEGATIVE); NITRITE NEGATIVE (NEGATIVE); UROBILINOGEN NORMAL (NORMAL)
[2019-11-30 18:09] LABS: WHITE CELLS - URINE 0-5 /hpf (NEGATIVE)
[2019-11-30 18:10] LABS: BACTERIA FEW /hpf (NEGATIVE); EPITHELIAL CELLS 0-5 /hpf (0-5); HYALINE CAST 0-5 /lpf (NONE SEEN)
[2019-11-30] MEDS ORDERED: CYCLOBENZAPRINE10 MG PO (21:49)
[2019-12-01 01:04] VITALS: BP 136/65
[2019-12-01 05:44] LABS: BASOPHILS 0.8 % (0-2); EOSINOPHILS 12.1 % (0-7); HEMATOCRIT 28.5 % (42.0-54.0); HEMOGLOBIN 9.4 g/dL (13.5-17.5); IMMATURE GRANULOCYTES 0.8 % (0-5); LYMPHOCYTES 10.8 % (15-50); MCH 31.5 pg (26.0-34.0); MCV 95.6 fL (80.0-100.0); MEAN PLATELET VOLUME 9.1 fL (7.4-10.4); MONOCYTES 8.6 % (2-11); NEUTROPHILS 66.9 % (40-80); PLATELET COUNT 345 10x3/uL (130-400); RBC 2.98 10x6/uL (4.20-6.10); RDW 13.2 % (11.5-14.5); WBC 7.2 10x3/uL (4.8-10.8)
[2019-12-01 06:51] LABS: % SATURATION 35 % (15-55); IRON 60 ug/dl (35-150); TOTAL IRON BIND CAPACITY 169 ug/dl (260-445); UNSAT IRON BIND CAPACITY 109 ug/dl (150-375)
[2019-12-01 07:19] LABS: ALBUMIN 2.9 g/dL (3.4-5.0); ALKALINE PHOSPHATASE 72 U/L (30-120); ALT (SGPT) 11 U/L (10-68); BILIRUBIN - TOTAL 2.49 mg/dL (0.2-1.3); CALC OSMOLALITY 269 mosm/kg (275-300); CALCIUM 9.7 mg/dL (8.5-10.1); CARBON DIOXIDE 27.6 mmol/L (21.0-32.0); CHLORIDE - SERUM 99 mmol/L (98-107); CHOL - HDL RATIO 4.4 ratio (2.3-4.9); CHOLESTEROL, TOTAL 120 mg/dL (0-200); FERRITIN 726 ng/mL (3-244); GLUCOSE 103 mg/dL (74-106); HDL CHOLESTEROL 27 mg/dL (32-96); LDL CHOLESTEROL 71 mg/dL (0-100); LDL-HDL RATIO 2.6 ratio (1.5-3.5); PHOSPHOROUS 3.1 mg/dL (2.5-4.9); POTASSIUM - SERUM 3.7 mmol/L (3.5-5.1); PROTEIN - SERUM 6.4 g/dL (6.4-8.2); SODIUM 135 mmol/L (136-145); T4 THYROXIN - FREE 1.35 ng/dL (0.76-1.46); THYROID STIMULATING HORMONE 0.48 uIU/mL (0.36-3.74); TRIGLYCERIDE 110 mg/dL (30-200); UREA NITROGEN 12 mg/dL (7-18); eGFR NON AFRICAN AMERICAN 77 mL/min (90-120)
--- NOTE | 2019-12-01 07:25 | NUR ---
WALKING ROUNDS COMPLETE, PT SITTING UP IN BED, O2 AT 2L IN USE PER NC, PT DENIES PAIN OR NEEDS AT THIS TIME, SR UP X2, CALL LIGHT IN REACH, WILL CHAR
--- NOTE | 2019-12-01 08:20 | NUR ---
INFORMED PT THAT HE WOULD BE ABLE TO EAT BREAKFAST BUT BE NPO AFTER FOR US OF GALLBLADDER, VRBALIZED UNDERSTANDING,
[2019-12-01 09:20] VITALS: BP 87/60
--- NOTE | 2019-12-01 11:45 | NUR ---
PT ATE LUNCH AFTER BEING INFORMED EARLIER ABOUT BEING NPO AFTER BREAKFAST, STATES THEY BROUGHT IT SO I ATE IT, THEN HE EVEN SAID THEY CALLED FROM US EARLIER TO NOT EAT AFTER BREAKFAST
--- NOTE | 2019-12-01 13:20 | NUR ---
INFORMED PT THAT HE WILL BE NPO AFTER MIDNIGHT AND US WILL BE AROUND 10 AM, VERBALIZED UNDERSTANDING,
[2019-12-01 13:53] VITALS: BP 98/61
--- NOTE | 2019-12-01 15:19 | NUR ---
Rehab Note- Acute Inpatient Rehab Eval prescreen order received. The patient has had a PT Eval and has noted no skilled therapy need at this time. Thank you for this referral! Aniyah Lockwood RN Clinical Liaison, [facility] Rehab
--- NOTE | 2019-12-01 15:48 | NUR ---
GB U/S ORDERED FOR 11/30 - PT ATE BREAKFAST - WAS ASKED NOT TO EAT LUNCH AND WE WOULD DO U/S THIS AFTERNOON. I WENT TO DO AND PT'S LUNCH REMAINS ON TABLE. HE SAID HE WAS ASKED TO NOT EAT BUT DID SO. TALKED TO MADISON TERESA WHO HAD ALSO TOLD HIM NOT TO EAT. STUDY WILL BE DONE APPROX 10 AM ON 12/02/19 AFTER PT NPO AFTER MIDNIGHT. QUEENIE VIERA
[2019-12-01 16:00] VITALS: BP 128/75
[2019-12-01 17:12] VITALS: Ht 172.7 cm
--- NOTE | 2019-12-01 20:00 | NUR ---
REPORT RECIEVED AND INITIAL ROUNDS COMPLETED. SEE SHIFT ASSESSMENT. NO DISTRESS. CPOC.
[2019-12-01 20:45] VITALS: BP 106/51
[2019-12-02 01:23] VITALS: BP 99/56
[2019-12-02 05:44] VITALS: BP 117/63
[2019-12-02 06:17] LABS: HEMATOCRIT 26.8 % (42.0-54.0); IMMATURE GRANULOCYTES 1.1 % (0-5); MCH 32.7 pg (26.0-34.0); MCHC 33.6 g/dL (31.0-37.0); MCV 97.5 fL (80.0-100.0); MEAN PLATELET VOLUME 9.5 fL (7.4-10.4); MONOCYTES 7.6 % (2-11); NEUTROPHILS 64.3 % (40-80); PLATELET COUNT 298 10x3/uL (130-400); RBC 2.75 10x6/uL (4.20-6.10); RDW 13.4 % (11.5-14.5); WBC 7.3 10x3/uL (4.8-10.8)
[2019-12-02 06:28] LABS: CALC OSMOLALITY 272 mosm/kg (275-300); CALCIUM 9.5 mg/dL (8.5-10.1); CARBON DIOXIDE 27.3 mmol/L (21.0-32.0); CHLORIDE - SERUM 103 mmol/L (98-107); GLUCOSE 101 mg/dL (74-106); MAGNESIUM - SERUM 2.1 mg/dL (1.8-2.4); PHOSPHOROUS 3.5 mg/dL (2.5-4.9); SODIUM 137 mmol/L (136-145); UREA NITROGEN 11 mg/dL (7-18); eGFR NON AFRICAN AMERICAN 77 mL/min (90-120)
[2019-12-02 06:30] LABS: POTASSIUM - SERUM 4.4 mmol/L (3.5-5.1)
--- NOTE | 2019-12-02 07:27 | NUR ---
AM ROUNDS- PT RESTING COMFORTABLY WITH EYES CLOSED. RESP EVEN AND NONLABORED ON 2L. RT HAND IV SL. MONITOR SHOWING SR WITH RATE OF 98. CALL LIGHT IN REACH, NAD NOTED,W ILL CONTINUE PLAN OF CARE.
[2019-12-02 08:19] VITALS: BP 104/53
--- NOTE | 2019-12-02 10:09 | NUR ---
PT RESTING COMFORTABLY IN BED WITH EYES CLOSED. RESP EVEN AND NONLABORED ON 2L NC. HEART MONITOR SHOWING SR WITH RATE OF 98. PT NPO FOR US OF TEST. CALL LIGHT IN REACH, NAD NOTED, WILL CONTINUE PLAN OF CARE.
--- NOTE | 2019-12-02 11:40 | NUR ---
NOTIFIED BY CUSTOMER EXPERIENCE RETAIL CLERK THAT PT WAS DRINKING WATER WHEN SHE WENT INTO HIS ROOM, EVEN THOUGH HE IS NPO FOR TEST.
--- NOTE | 2019-12-02 13:01 | MORECARE ---
CASE MANAGEMENT DISCHARGE SUMMARY PATIENT: KARINA HODGES UNIT: [id number] ADM DATE: 12/01/19 AGE: 74 : 44 SEX: M ROOM/BED: D.2115 AUTHOR: MISTY BOATENG PHYSICIAN: REFERRING PHYSICIAN: RIGO DOLAN MD DATE OF SERVICE: 12/02/19 Discharge Plan Patient Name: KARINA HODGES [facility] [facility] 1945 Planned Disposition: Home Anticipated Discharge Date: Discharge Date: Expected LOS: Initial Reviewer: [email or web address] Initial Review Date: 11/30/2019 Generated: 12/02/19 2:00 pm Coverage Notice Reviewer: [id number] Ethan Platt Notice Issued Date-Time: 12/01/2019 17:13 Notice Type: Medicare Outpatient Observation Notice Notice Delivered To: Patient Relationship to Patient: Self Cyberathlete Name: Karina Hodges Delivery Method: HAND - Hand Delivered Jessica Days: Prior Verbal Notification: Recipient Understood Notice: Yes Recipient Signature: Yes Med Rec Note Co-signed by Attending: Coverage Notice Comment: LIEBERMAN signed/given to patient. Original to chart. Patient Name: KARINA HODGES Page [phone] at 1301 All edits/amendments must be made on the electronic document DICTATION DATE: 12/02/19 1300 INDUSTRIAL ELECTRICAL ENGINEER: KIERSTEN 12/02/19 1300 RPT#: [id number] DC DATE: STATUS: ADM IN [facility] [address] [place] [address] END OF REPORT
--- NOTE | 2019-12-02 13:48 | MORECARE ---
CASE MANAGEMENT DISCHARGE SUMMARY PATIENT: KARINA HODGES UNIT: [id number] ADM DATE: 12/01/19 AGE: 74 : 44 SEX: M ROOM/BED: D.0122 AUTHOR: MISTY BOATENG PHYSICIAN: REFERRING PHYSICIAN: RIGO DOLAN MD DATE OF SERVICE: 12/02/19 Discharge Plan Patient Name: [facility]ARINA [facility]ODGES [facility] [facility] 1945 Planned Disposition: Home Anticipated Discharge Date: Discharge Date: Expected LOS: Initial Reviewer: [id number] Initial Review Date: 11/30/2019 Generated: 12/02/19 2:47 pm External Providers External Provider: Bud Next Contact Date: Service Request Date: Service Type: Resolution: Reviewer: Comments: Coverage Notice Reviewer: [id number] Ethan Platt Notice Issued Date-Time: 12/01/2019 17:13 Notice Type: Medicare Outpatient Observation Notice Notice Delivered To: Patient Relationship to Patient: Self Category Development Manager Name: Karina Hodges Delivery Method: HAND - Hand Delivered Jessica Days: Prior Verbal Notification: Recipient Understood Notice: Yes Recipient Signature: Yes Med Rec Note Co-signed by Attending: Coverage Notice Comment: MIO signed/given to patient. Original to chart. Last DP export: 12/02/19 12:01 p Patient Name: KARINA HODGES Page [phone] at 1348 All edits/amendments must be made on the electronic document DICTATION DATE: 12/02/19 1347 SERVICE ADMINISTRATOR: KIERSTEN 12/02/19 1347 RPT#: [id number] DC DATE: STATUS: ADM IN [facility] [address] [place] [address] END OF REPORT
--- NOTE | 2019-12-02 13:54 | MORECARE ---
CASE MANAGEMENT DISCHARGE SUMMARY PATIENT: KARINA HODGES UNIT: [id number] ADM DATE: 12/01/19 AGE: 74 : 44 SEX: M ROOM/BED: D.4677 AUTHOR: MISTY BOATENG PHYSICIAN: REFERRING PHYSICIAN: RIGO DOLAN MD DATE OF SERVICE: 12/02/19 Discharge Plan Patient Name: KARINA HODGES [facility] [facility] 1945 Planned Disposition: Home Anticipated Discharge Date: Discharge Date: Expected LOS: Initial Reviewer: [email or web address] Initial Review Date: 11/30/2019 Generated: 12/02/19 2:54 pm External Providers External Provider: [facility] Next Contact Date: Service Request Date: Service Type: Resolution: Reviewer: Comments: Coverage Notice Reviewer: [id number] Ethan Platt Notice Issued Date-Time: 12/01/2019 17:13 Notice Type: Medicare Outpatient Observation Notice Notice Delivered To: Patient Relationship to Patient: Self In Flight Refueling Craftsman Name: Karina Hodges Delivery Method: HAND - Hand Delivered Jessica Days: Prior Verbal Notification: Recipient Understood Notice: Yes Recipient Signature: Yes Med Rec Note Co-signed by Attending: Coverage Notice Comment: MIO signed/given to patient. Original to chart. Last DP export: 12/02/19 12:47 p Patient Name: KARINA HODGES Page [phone] at 1354 All edits/amendments must be made on the electronic document DICTATION DATE: 12/02/19 1354 SCUBA DIVING TEACHER: KIERSTEN 12/02/19 1354 RPT#: [id number] DC DATE: STATUS: ADM IN [facility] [address] [place] [address] END OF REPORT
--- NOTE | 2019-12-02 14:43 | NUR ---
PROVIDED VERBAL AND WRITTEN DISCHARGE TEACHING TO PT, WHO VERBALIZED UNDERSTANDING REGARDING TEACHING. PHILL DOE ELECTRONIC LAB TECHNICIAN IN TO GO OVER RESULTS OF US OF GALLBLADDER. D/C RT HAND IV WITH CATHETER TIP INTACT. HEART MONITOR REMOVED AND TAKEN TO SHELLS INSPECTOR.
--- NOTE | 2019-12-02 16:31 | NUR ---
PT LEFT UNIT VIA WHEELCHAIR, WITH ALL BELONGINGS, NAD NOTED.
[2019-12-04 10:08] LABS: ANA REFLEX - DIRECT Negative (Negative)
--- NOTE | 2019-12-06 09:20 | MORECARE ---
CASE MANAGEMENT DISCHARGE SUMMARY PATIENT: KARINA HODGES UNIT: [id number] ADM DATE: 12/01/19 AGE: 74 : 44 SEX: M ROOM/BED: D.6630 AUTHOR: MISTY BOATENG PHYSICIAN: REFERRING PHYSICIAN: RIGO DOLAN MD DATE OF SERVICE: 12/06/19 Discharge Plan Patient Name: KARINA HODGES [facility] [facility] 1945 Planned Disposition: Home Anticipated Discharge Date: Discharge Date: 12/02/2019 Expected LOS: Initial Reviewer: [email or web address] Initial Review Date: 11/30/2019 Generated: 12/06/19 10:19 am Coverage Notice Reviewer: [id number] Ethan Platt Notice Issued Date-Time: 12/01/2019 17:13 Notice Type: Medicare Outpatient Observation Notice Notice Delivered To: Patient Relationship to Patient: Self Second Rigger Name: Karina Hodges Delivery Method: HAND - Hand Delivered Jessica Days: Prior Verbal Notification: Recipient Understood Notice: Yes Recipient Signature: Yes Med Rec Note Co-signed by Attending: Coverage Notice Comment: LIEBERMAN signed/given to patient. Original to chart. Reviewer: [id number] Ethan Johnson Notice Issued Date-Time: 12/02/2019 11:00 Notice Type: Patient Choice Letter Notice Delivered To: Patient Relationship to Patient: Second Rigger Name: Delivery Method: HAND - Hand Delivered Jessica Days: Prior Verbal Notification: Yes Recipient Understood Notice: Yes Recipient Signature: Yes Med Rec Note Co-signed by Attending: Coverage Notice Comment: [facility] Reviewer: [id number] Ethan Johnson Notice Issued Date-Time: 12/02/2019 10:50 Notice Type: IM Discharge Notice Notice Delivered To: Patient Relationship to Patient: Second Rigger Name: Delivery Method: HAND - Hand Delivered Jessica Days: Prior Verbal Notification: Yes Recipient Understood Notice: Yes Recipient Signature: Yes Med Rec Note Co-signed by Attending: Coverage Notice Comment: dc imm delivered Last DP export: 12/02/19 12:54 p Patient Name: KARINA HODGES Page [phone] at 0920 All edits/amendments must be made on the electronic document DICTATION DATE: 12/06/19918 GREEN TIRE INSPECTOR: KIERSTEN 12/06/19918 RPT#: [id number] DC DATE:12/02/19 STATUS: DIS IN [facility] [address] [place] [address] END OF REPORT
== END 2019-12-02 16:31 | disposition home health service (06) | DRG 191 ==
LOC: D.ER 12:17 → D.M2 17:38 → OBSVTIME 17:38 → D.M2 17:38
PROVIDERS: Family Medicine; ADMIT Family Medicine; ATTEND Family Medicine
DX: J44.9 Chronic obstructive pulmonary disease, unspecified (principal); I50.20 Unspecified systolic (congestive) heart failure; N39.0 Urinary tract infection, site not specified; D64.9 Anemia, unspecified; E80.6 Other disorders of bilirubin metabolism; E78.5 Hyperlipidemia, unspecified; I25.10 Atherosclerotic heart disease of native coronary artery without angina pectoris; Z79.01 Long term (current) use of anticoagulants; K21.9 Gastro-esophageal reflux disease without esophagitis; I11.0 Hypertensive heart disease with heart failure; Z86.73 Personal history of transient ischemic attack (TIA), and cerebral infarction without residual deficits; I71.4 Abdominal aortic aneurysm, without rupture; I72.3 Aneurysm of iliac artery; R00.0 Tachycardia, unspecified; R63.4 Abnormal weight loss

== ENCOUNTER 2019-12-06 15:16 | Inpatient (IN) | payer MEDICARE, OTHER ==
[~2019-12-06] VITALS: Ht 172.7 cm; Wt 45.5 kg
[~2019-12-06 15:16] MED LIST changes: +CYCLOBENZAPRINE10 MG PO
[2019-12-06 16:08] LABS: BASOPHILS 0.6 % (0-2); EOSINOPHILS 5.8 % (0-7); IMMATURE GRANULOCYTES 0.5 % (0-5); LYMPHOCYTES 8.9 % (15-50); MCHC 33.3 g/dL (31.0-37.0); MCV 96.1 fL (80.0-100.0); MEAN PLATELET VOLUME 8.8 fL (7.4-10.4); MONOCYTES 8.1 % (2-11); NEUTROPHILS 76.1 % (40-80); PLATELET COUNT 341 10x3/uL (130-400); RBC 2.81 10x6/uL (4.20-6.10); RDW 13.5 % (11.5-14.5); WBC 6.5 10x3/uL (4.8-10.8)
[2019-12-06 16:20] VITALS: BP 104/66
[2019-12-06 16:22] LABS: APTT 35.3 SECONDS (22.8-39.4); INR 1.1 (0.85-1.17); PROTIME 14.2 SECONDS (11.6-15.0)
[2019-12-06 16:28] LABS: ANION GAP 9.9 mmol/L (8-16); CALCIUM 9.6 mg/dL (8.5-10.1); CARBON DIOXIDE 29.2 mmol/L (21.0-32.0); CREATININE - SERUM 1.2 mg/dL (0.6-1.3); POTASSIUM - SERUM 4.1 mmol/L (3.5-5.1)
[2019-12-06 16:43] LABS: BILIRUBIN - DIRECT 0.72 mg/dL (0.00-0.30); BILIRUBIN - TOTAL 2.12 mg/dL (0.2-1.3); PROTEIN - SERUM 6.4 g/dL (6.4-8.2); THYROID STIMULATING HORMONE 0.59 uIU/mL (0.36-3.74)
[2019-12-06 17:21] VITALS: BP 103/70
[2019-12-06 18:22] VITALS: BP 109/70
--- NOTE | 2019-12-06 19:00 | NUR ---
REPORT TO MADISON LUGO.
[2019-12-06 23:36] VITALS: BP 89/56; BMI 19.8
[2019-12-07] VITALS (7 sets, daily range): BP systolic 87–145; BP diastolic 49–86; BMI 19.7; BMI 15.2
[2019-12-07 00:53] LABS: HEMATOCRIT 22.3 % (42.0-54.0)
[2019-12-07 01:48] LABS: HEMOGLOBIN 7.3 g/dL (13.5-17.5)
[2019-12-07 04:52] LABS: HEMATOCRIT 22.8 % (42.0-54.0)
[2019-12-07 05:16] LABS: HEMOGLOBIN 7.5 g/dL (13.5-17.5)
[2019-12-07 05:33] LABS: ALBUMIN 2.4 g/dL (3.4-5.0); ALKALINE PHOSPHATASE 62 U/L (30-120); ALT (SGPT) 11 U/L (10-68); BILIRUBIN - TOTAL 1.66 mg/dL (0.2-1.3); CALC OSMOLALITY 274 mosm/kg (275-300); CALCIUM 8.7 mg/dL (8.5-10.1); CHLORIDE - SERUM 107 mmol/L (98-107); CREATININE - SERUM 0.9 mg/dL (0.6-1.3); GLUCOSE 100 mg/dL (74-106); MAGNESIUM - SERUM 1.8 mg/dL (1.8-2.4); PHOSPHOROUS 2.8 mg/dL (2.5-4.9); POTASSIUM - SERUM 3.7 mmol/L (3.5-5.1); PROTEIN - SERUM 5.3 g/dL (6.4-8.2); SODIUM 138 mmol/L (136-145); eGFR NON AFRICAN AMERICAN 87 mL/min (90-120)
[2019-12-07 05:41] LABS: UREA NITROGEN 10 mg/dL (7-18)
--- NOTE | 2019-12-07 08:09 | NUR ---
Was taken down for CT at 0745 after first unit of blood finished infusing. Transported via WC. No acute distress noted.
[2019-12-07 11:51] LABS: HEMOGLOBIN 10.1 g/dL (13.5-17.5)
[2019-12-07 11:58] LABS: CKMB 0.7 U/L (0.0-3.6); CREATINE KINASE 35 UL (21-232); TROPONIN-I 0.023 ng/mL (0.000-0.060)
[2019-12-07 17:58] LABS: HEMATOCRIT 30.2 % (42.0-54.0)
[2019-12-07 18:25] LABS: CKMB 1.8 U/L (0.0-3.6); CREATINE KINASE 49 UL (21-232)
[2019-12-07 18:30] LABS: TROPONIN-I 0.275 ng/mL (0.000-0.060)
--- NOTE | 2019-12-07 18:35 | NUR ---
RECEIVED CALL FROM LAB PT TROPONIN IS [phone]. CALLED AND GAVE RESULT TO SILVIA CHIRINOS. PT HAS ANOTHER TROPONIN LAB AT 2300 IF STILL ELEVATED WILL CONSULT CARDIOLOGY
[2019-12-07 20:08] LABS: BILIRUBIN NEGATIVE (NEGATIVE); GLUCOSE NEGATIVE (NEGATIVE); KETONE NEGATIVE (NEGATIVE); NITRITE POSITIVE (NEGATIVE); UROBILINOGEN NORMAL (NORMAL)
[2019-12-07 20:09] LABS: BACTERIA FEW /hpf (NEGATIVE); EPITHELIAL CELLS 0-5 /hpf (0-5); RED CELLS - URINE 0-5 /hpf (0-5); WHITE CELLS - URINE 0-5 /hpf (NEGATIVE)
[2019-12-07 23:35] LABS: CKMB 1.9 U/L (0.0-3.6); CREATINE KINASE 47 UL (21-232)
[2019-12-07 23:37] LABS: TROPONIN-I 0.209 ng/mL (0.000-0.060)
[2019-12-08] VITALS: BP 86/54
[2019-12-08 04:00] VITALS: BP 85/55
--- NOTE | 2019-12-08 04:21 | NUR ---
ASSESSED AT THE BEGINNING OF THE SHIFT. PT IS ALERT AND ORIENTED, ABLE TO VERBALIZE NEEDS. HE IS UP AD CHIQUITA TO THE BATHROOM AND HAS LOTS OF QUESTIONS FOR THE STAFF. NO NIGHTTIME MEDS WERE DUE BUT PT HAS SEVERAL TO TAKE IN THE AM.
[2019-12-08 06:52] LABS: BASOPHILS 0.3 % (0-2); EOSINOPHILS 11.1 % (0-7); HEMATOCRIT 25.4 % (42.0-54.0); HEMOGLOBIN 8.4 g/dL (13.5-17.5); IMMATURE GRANULOCYTES 0.5 % (0-5); LYMPHOCYTES 11.5 % (15-50); MCH 31.5 pg (26.0-34.0); MCHC 33.1 g/dL (31.0-37.0); MCV 95.1 fL (80.0-100.0); MEAN PLATELET VOLUME 8.9 fL (7.4-10.4); MONOCYTES 7.8 % (2-11); NEUTROPHILS 68.8 % (40-80); RBC 2.67 10x6/uL (4.20-6.10); RDW 14.7 % (11.5-14.5); WBC 5.8 10x3/uL (4.8-10.8)
[2019-12-08 07:00] LABS: PLATELET COUNT 269 10x3/uL (130-400)
[2019-12-08 07:09] LABS: % SATURATION 41 % (15-55); IRON 51 ug/dl (35-150); TOTAL IRON BIND CAPACITY 124 ug/dl (260-445); UNSAT IRON BIND CAPACITY 73 ug/dl (150-375)
[2019-12-08 07:33] LABS: CALC OSMOLALITY 281 mosm/kg (275-300); CALCIUM 8.7 mg/dL (8.5-10.1); CARBON DIOXIDE 27.9 mmol/L (21.0-32.0); CHLORIDE - SERUM 109 mmol/L (98-107); CREATININE - SERUM 0.9 mg/dL (0.6-1.3); FERRITIN 978 ng/mL (3-244); GLUCOSE 90 mg/dL (74-106); MAGNESIUM - SERUM 1.8 mg/dL (1.8-2.4); PHOSPHOROUS 2.7 mg/dL (2.5-4.9); POTASSIUM - SERUM 3.5 mmol/L (3.5-5.1); SODIUM 142 mmol/L (136-145); UREA NITROGEN 10 mg/dL (7-18); eGFR NON AFRICAN AMERICAN 87 mL/min (90-120)
[2019-12-08 08:09] VITALS: BP 84/55
--- NOTE | 2019-12-08 11:40 | NUR ---
PATIENT UP TO BATHROOM, THEN BACK TO BED. DENIES PAIN OR NEEDS. BED LOW POSITION, CALL LIGHT IN REACH. WILL CONTINUE TO MONITOR.
[2019-12-08 11:52] LABS: THYROID STIMULATING HORMONE 0.63 uIU/mL (0.36-3.74)
[2019-12-08 12:12] VITALS: BP 83/56
[2019-12-08 12:15] VITALS: Ht 172.7 cm; Wt 45.5 kg
[2019-12-08 15:37] VITALS: BP 92/55
--- NOTE | 2019-12-08 20:00 | NUR ---
PATIENT RESTING IN BED WATCHING TV. NO S/S OF ACUTE DISTRESS. NO C/O AT THIS TIME. PATIENT HAS LEFT FOREARM, NORMAL SALINE @ 75 ML/HR. IV IS PATENT WITHOUT REDNESS, SWELLING, OR TENDERNESS. PATIENT IS UP AD CHIQUITA TO THE BATHROOM. CALL LIGHT WITHIN REACH. WILL CONTINUE TO MONITOR.
--- NOTE | 2019-12-08 23:10 | NUR ---
PATIENT IV INFILTRATED. IV WAS REMOVED. CATHETER TIP INTACT. CALL LIGHT WITHIN REACH. WILL CONTINUE TO MONITOR. CALL LIGHT WITHIN REACH.
[2019-12-09 04:00] VITALS: BP 92/54
[2019-12-09 06:48] LABS: BASOPHILS 0.5 % (0-2); EOSINOPHILS 12.5 % (0-7); HEMATOCRIT 27.4 % (42.0-54.0); HEMOGLOBIN 8.9 g/dL (13.5-17.5); IMMATURE GRANULOCYTES 0.5 % (0-5); LYMPHOCYTES 16.7 % (15-50); MCHC 32.5 g/dL (31.0-37.0); MCV 95.5 fL (80.0-100.0); MEAN PLATELET VOLUME 9.1 fL (7.4-10.4); MONOCYTES 6.2 % (2-11); NEUTROPHILS 63.6 % (40-80); PLATELET COUNT 283 10x3/uL (130-400); RBC 2.87 10x6/uL (4.20-6.10); RDW 14.5 % (11.5-14.5)
[2019-12-09 07:04] LABS: CALC OSMOLALITY 273 mosm/kg (275-300); CALCIUM 8.7 mg/dL (8.5-10.1); CARBON DIOXIDE 24.9 mmol/L (21.0-32.0); CHLORIDE - SERUM 106 mmol/L (98-107); CREATININE - SERUM 0.9 mg/dL (0.6-1.3); GLUCOSE 102 mg/dL (74-106); MAGNESIUM - SERUM 1.7 mg/dL (1.8-2.4); PHOSPHOROUS 2.5 mg/dL (2.5-4.9); POTASSIUM - SERUM 3.3 mmol/L (3.5-5.1); SODIUM 138 mmol/L (136-145); eGFR NON AFRICAN AMERICAN 87 mL/min (90-120)
[2019-12-09 07:06] LABS: UREA NITROGEN 7 mg/dL (7-18)
[2019-12-09 09:42] VITALS: BP 89/57
[2019-12-09 12:12] VITALS: BP 90/57
[2019-12-09 17:08] VITALS: BP 92/64
[2019-12-09 20:00] VITALS: BP 105/67
[2019-12-10] VITALS: BP 108/63
[2019-12-10 04:00] VITALS: BP 163/84
[2019-12-10 07:26] LABS: CALC OSMOLALITY 278 mosm/kg (275-300); CARBON DIOXIDE 27.8 mmol/L (21.0-32.0); CHLORIDE - SERUM 107 mmol/L (98-107); CREATININE - SERUM 0.8 mg/dL (0.6-1.3); GLUCOSE 90 mg/dL (74-106); PHOSPHOROUS 2.7 mg/dL (2.5-4.9); SODIUM 141 mmol/L (136-145); UREA NITROGEN 6 mg/dL (7-18); eGFR NON AFRICAN AMERICAN > 90 mL/min (90-120)
[2019-12-10 07:43] LABS: BASOPHILS 0.5 % (0-2); EOSINOPHILS 12.4 % (0-7); HEMATOCRIT 27.9 % (42.0-54.0); IMMATURE GRANULOCYTES 0.5 % (0-5); LYMPHOCYTES 14.3 % (15-50); MCH 31.1 pg (26.0-34.0); MCHC 32.3 g/dL (31.0-37.0); MCV 96.5 fL (80.0-100.0); MEAN PLATELET VOLUME 9.2 fL (7.4-10.4); MONOCYTES 7.8 % (2-11); NEUTROPHILS 64.5 % (40-80); PLATELET COUNT 298 10x3/uL (130-400); RBC 2.89 10x6/uL (4.20-6.10); RDW 14.4 % (11.5-14.5); WBC 5.9 10x3/uL (4.8-10.8)
[2019-12-10 09:45] VITALS: BP 100/49
[2019-12-10 12:11] VITALS: BP 96/61
[2019-12-10] MEDS ORDERED: FOLATE0.4 MG PO (12:14)
[2019-12-10] MEDS ORDERED: PROTONIX40 MG PO (12:15)
--- NOTE | 2019-12-10 13:50 | NUR ---
IV THERAPY REMOVED FROM LEFT FOREARM WITH TIP INTACT. CALLING TO COME PICK HIM UP.
[2019-12-11 18:08] LABS: SPE - A/G RATIO 1.1 (0.7-1.7); SPE - ALBUMIN 2.5 g/dL (2.9-4.4); SPE - ALPHA-1 GLOBULIN 0.3 g/dL (0.0-0.4); SPE - ALPHA-2 GLOBULIN 0.7 g/dL (0.4-1.0); SPE - BETA GLOBULIN 0.5 g/dL (0.7-1.3); SPE - GAMMA GLOBULIN 0.6 g/dL (0.4-1.8); SPE - M-SPIKE Not Observed g/dL (Not Observed); SPE - TOTAL PROTEIN 4.7 g/dL (6.0-8.5)
== END 2019-12-10 15:11 | disposition home or self-care (01) | DRG 378 ==
LOC: D.ER 15:16 → D.MS 17:20
PROVIDERS: Family Medicine; Internal Medicine Gastroenterology; Internal Medicine Hematology & Oncology; ADMIT Family Medicine Adult Medicine; ATTEND Family Medicine Adult Medicine
PROC: 0DB78ZX Excision of Stomach, Pylorus, Via Natural or Artificial Opening Endoscopic, Diagnostic (ICD-10-PCS; 2019-12-07)
PROC: 0DB98ZX Excision of Duodenum, Via Natural or Artificial Opening Endoscopic, Diagnostic (ICD-10-PCS; principal; 2019-12-07 15:00)
DX: K92.2 Gastrointestinal hemorrhage, unspecified (principal); I50.20 Unspecified systolic (congestive) heart failure; K21.0 Gastro-esophageal reflux disease with esophagitis; K44.9 Diaphragmatic hernia without obstruction or gangrene; F41.9 Anxiety disorder, unspecified; D64.9 Anemia, unspecified; Z79.01 Long term (current) use of anticoagulants; I10 Essential (primary) hypertension; E78.5 Hyperlipidemia, unspecified; M19.90 Unspecified osteoarthritis, unspecified site; I11.0 Hypertensive heart disease with heart failure; Z85.46 Personal history of malignant neoplasm of prostate; J44.9 Chronic obstructive pulmonary disease, unspecified